=== PATIENT | female | born 1930 | race Caucasian/White ===

== ENCOUNTER 2017-05-02 14:22 | Inpatient (IN) | payer OTHER ==
[~2017-05-02] VITALS: Ht 142.2 cm; Wt 47.4 kg
[~2017-05-02 14:22] MED LIST: ASPIRIN EC325 MG PO; ATENOLOL50 MG PO; DOXYCYCLINE HY100 M4 PO; LOVASTATIN40 MG PO
--- NOTE | 2017-05-02 14:37 | ED MVC/FALL/TRAUMA COMPLAINT ---
See Addendum History of Present Illness General Chief Complaint: Fall Stated Complaint: BIBA S/P FALL Source: patient, family, EMS Exam Limitations: no limitations Vital Signs & Intake/Output Vital Signs & Intake/Output Vital Signs Date Time Temp Pulse Resp B/P B/P Pulse O2 O2 Flow FiO2 Mean Ox Delivery Rate 05/02 1453 95 Nasal 3.0L Cannula 05/02 1435 96.9 82 18 159/76 95 Nasal 3.0L Cannula Allergies Coded Allergies: NO KNOWN ALLERGIES (02/27/14) Reconcile Medications Aspirin E.c. (Ecotrin) 325 MG TAB 1 TAB PO DAILY HEART HEALTH (Reported) Atenolol 50 MG TABLET 1 TAB PO DAILY HEART (Reported) Doxycycline Hyclate 100 MG TABLET 1 TAB PO BID wound Lovastatin 40 MG TABLET 1 TAB PO DAILY CHOLESTEROL (Reported) with food Triage Note: PT TO ER S/P FALL, STATES LOST BALANCE AND FELL. PRESENTS TO ER WITH EXTERNALLY ROTATED, SHORENTED RIGHT HIP. 10/10 RIGHT HIP PAIN. +PEDAL PULSES. RA SAT 78%, ADMITS TO BEING A HEAVY SMOKER, PLACED ON 3 L NC SATS TO 93%. ADMITS TO "LIGHT" HEAD STRIKE. NO LOC. TAKES 81 MG ASA DAILY Triage Nurses Notes Reviewed? yes Onset: Abrupt Duration: day(s):, constant Timing: recent history Severity: moderate, severe Injuries/Fall Location: upper extremity, lower extremity Method of Injury: fall No Modifying Factors: none HPI: 86-year-old female comes in by ambulance after falling at home. Patient reports that she was reaching for something in the kitchen when she twisted and fell on her right hip. She has pain. She has been unable to ambulate. Cut to the left forearm. She denies hitting her head. She is alert and oriented 3. Denies any preceding lightheaded dizziness chest pain shortness of breath prior to fall. Pain is severe. Right hip. Worsening movement. (Tommy Rodriguez) Past History Travel History Traveled to [place] past 21 day No Medical History Any Pertinent Medical History? 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 No (Tommy Rodriguez) Review of Systems Review of Systems Constitutional: Reports: no symptoms. Eyes: Reports: no symptoms. Ears, Nose, Throat, Mouth: Reports: no symptoms. Respiratory: Reports: no symptoms. Cardiovascular: Reports: no symptoms. Gastrointestinal/Abdominal: Reports: no symptoms. Genitourinary: Reports: no symptoms. Musculoskeletal: Reports: see HPI. Skin: Reports: no symptoms. Neurological/Psychological: Reports: no symptoms. All Other Systems: Reviewed and Negative (Tommy Rodriguez) Physical Exam Physical Exam General Appearance: alert, thin Head: atraumatic Eyes: Bilateral: normal appearance. Ears, Nose, Throat, Mouth: hearing grossly normal, moist mucous membrane Neck: normal inspection, full range of motion Respiratory: no respiratory distress Gastrointestinal: soft, non-tender Extremities: right foot sure and on the right side and foot externally rotated, pain with any type of internal rotation or external rotation of hip,, skin avulsion to left forearm Neurologic/Psych: awake, alert, oriented x 3 Core Measures ACS in differential dx? No CVA/TIA Diagnosis No Sepsis Present: No Sepsis Focused Exam Completed? No (Tommy Rodriguez) Progress Differential Diagnosis: abd injury, C/T/L spine injury, ext injury, ICH, pelvis injury, pnemothorax, spinal cord injury Diagnostic Imaging: Viewed by Me: Radiology Read. Discussed w/RAD: Radiology Read. Radiology Impression: PATIENT: ALFONSO SHEPHERD PRESENT AGE: 86 PATIENT ACCOUNT NO: [id number] : [birth year] LOCATION: [facility], [place] ORDERING PHYSICIAN: Tommy MERCEDES SERVICE DATE: 05/02/17 EXAM TYPE: RAD - XRY-CHEST XRAY, SINGLE VIEW; XRY-FOREARM, LEFT; XRY-HIP 2-3 VIEWS, RIGHT EXAMINATION: XR HIP, RIGHT XR FOREARM, LEFT XR CHEST CLINICAL INFORMATION: 86- year-old female status post fall, complaining of right hip, left forearm pain. COMPARISON: Chest x-ray done on 07/02/2014. TECHNIQUE: Two views of the right hip. Two views of the left forearm and single frontal view of the chest. FINDINGS: RIGHT HIP: Mild diffuse osteopenia is noted. Comminuted intertrochanteric fracture is present with minimal superior and posterior displacement of the distal fracture fragment. LEFT FOREARM: The bony alignment is intact. The cortices are intact. Chondrocalcinosis is noted within the included visualized part of the left wrist. Moderate diffuse osteopenia is seen. CHEST: Persistent stable mild blunting of the right lateral CP angle is noted, consistent with chronic pleural effusion, thickening or combination thereof. Mild pulmonary venous congestion is noted bilaterally, unchanged. Linear pleural parenchymal opacities noted at both lung bases (right greater than left) may represent hypoventilatory, atelectatic changes versus infiltrate versus pleural parenchymal scar or a combination thereof. The cardiomediastinal silhouette is mildly enlarged. Compared to prior study, the pulmonary venous congestion and bibasilar airspace disease appear new. IMPRESSION: 1. Moderate diffuse osteopenia involving all the visualized bones. 2. Comminuted minimally displaced intertrochanteric fracture of the right femur. 3. No radiographic evidence of any fracture or dislocation involving the left forearm. 4. Abnormal chest radiograph showing evidence of mild pulmonary venous congestion and nonspecific bibasilar linear pleuroparenchymal disease. Stable blunting of right lateral CP angle is consistent with chronic small pleural thickening or pleural effusion. 5. Mild enlargement of the cardiomediastinal silhouette. DICTATED BY: Hermann Bonds MD DATE/TIME DICTATED:05/02/171601 GLOBAL COORDINATOR:HILARIA DATE/ TIME TRANSCRIBED:05/02/171601 CONFIDENTIAL, DO NOT COPY WITHOUT APPROPRIATE AUTHORIZATION. <Electronically signed in Other Vendor System> SIGNED BY: Hermann Bonds MD 05/02/17 1644 (Tommy Rodriguez) Plan of Care: Orders Procedure Date/time Status Nothing by Mouth 05/03 B Active Cruz, Insertion/Removal/Asses 05/02 1646 Active CULTURE,URINE 05/02 1646 Active Misc Message 05/02 1620 Active ED Holding Orders 05/02 1620 Active Admit to inpatient 05/02 1620 Active Vital Signs 05/02 1620 Active Code Status 05/02 1620 Active TROPONIN LEVEL 05/02 1437 Complete PARTIAL THROMBOPLASTIN TIME 05/02 1437 Complete PROTHROMBIN TIME 05/02 1437 Complete COMPREHENSIVE METABOLIC PANEL 05/02 143 Complete CBC WITHOUT DIFFERENTIAL 05/02 143 Complete EKG 05/02 143 Active TYPE & SCREEN (NOT X-MATCH) 05/02 143 Complete Laboratory Tests 05/02/17 1448: Anion Gap 6, Estimated GFR 47 L, BUN/Creatinine Ratio 22.7, Glucose 164 H, Calcium 8.8, Total Bilirubin 0.3, AST 19, ALT 18, Alkaline Phosphatase 67, Troponin I 0.03, Total Protein 5.7 L, Albumin 3.1 L, Globulin 2.6, Albumin/ Globulin Ratio 1.2, PT 10.5, INR 1.00, APTT < 20 L, CBC w Diff NO MAN DIFF REQ, RBC 4.08 L, MCV 96.8, MCH 31.8 H, MCHC 32.9 L, RDW 14.0, MPV 7.9, Gran % 86.0 H, Lymphocytes % 6.5 L, Monocytes % 5.8, Eosinophils % 1.5, Basophils % 0.2, Absolute Granulocytes 8.9 H, Absolute Lymphocytes 0.7 L, Absolute Monocytes 0.6, Absolute Eosinophils 0.2, Absolute Basophils 0 Microbiology 05/02 1646 URINE ROUT: Urine Culture - ORD (Lauren LEIGH,Jourdan Mackenzie) Departure Departure Disposition: HOME OR SELF CARE Condition: Stable Clinical Impression Primary Impression: Intertrochanteric fracture of right hip Secondary Impressions: Hypoxia Referrals: Lev LEIGH,Darshan Powell (PCP/Family) Departure Forms: Customer Survey General Discharge Information Admission Note Spoke With: Janet Garrido MD Documentation of Exam: Documentation of any treatments & extenuating circumstances including Concerns Regarding Discharge (functional status, medication knowledge or non-compliance, living conditions, etc.) that warrant an admission rather than observation: Patient will require supplemental oxygen. Cardiac clearance. Or so consultation. Surgery right hip. High risk. O2 saturation 79% on room air when patient arrived. IV pain control. Unable to ambulate. (Tommy Rodriguez) PA/GENERAL EDUCATION INSTRUCTOR Co-Sign Statement Statement: ED Attending supervision documentation- [X] I saw and evaluated the patient. I have also reviewed all the pertinent lab results and diagnostic results. I agree with the findings and the plan of care as documented in the PA's/GENERAL EDUCATION INSTRUCTOR's documentation. Patient presents for evaluation of right hip pain status post fall. Physical examination reveals a shortened and externally rotated right lower extremity; the right lower extremity is neurovascular intact distally. , [] I have reviewed the ED Record and agree with the PA's/GENERAL EDUCATION INSTRUCTOR's documentation. [] Additions or exceptions (if any) to the PAs/GENERAL EDUCATION INSTRUCTOR's note and plan are summarized below: [] (Lauren LEIGH,Jourdan Mackenzie)
[2017-05-02 14:58] LABS: ABSOLUTE BASOPHIL COUNT 0 /CUMM (0.0-0.2); ABSOLUTE EOSINOPHIL COUNT 0.2 /CUMM (0.0-0.7); ABSOLUTE GRANULOCYTE CT 8.9 /CUMM (1.4-6.5); ABSOLUTE LYMPH COUNT 0.7 /CUMM (1.2-3.4); ABSOLUTE MONOCYTE COUNT 0.6 /CUMM (0.10-0.60); BASOPHIL % 0.2 % (0.0-2.0); EOSINOPHIL % 1.5 % (0-5); HEMATOCRIT 39.5 % (37-47); MEAN CORPUSCULAR HGB 31.8 PG (27.0-31.0); MEAN CORPUSCULAR HGB CONC 32.9 G/DL (33.0-37.0); MEAN CORPUSCULAR VOLUME 96.8 FL (81.0-99.0); MEAN PLATELET VOLUME 7.9 FL (7.4-10.4); PLATELET COUNT 247 /CUMM (130-400); RED BLOOD CELL CT 4.08 /CUMM (4.20-5.40); WHITE BLOOD CELL COUNT 10.3 /CUMM (4.8-10.8)
[2017-05-02 15:08] LABS: PT 10.5 SEC (9.4-12.5); PTT < 20 SEC (25-37)
--- NOTE | 2017-05-02 16:44 | RADIOLOGY REPORT ---
EXAMINATION: XR HIP, RIGHT XR FOREARM, LEFT XR CHEST CLINICAL INFORMATION: 86-year-old female status post fall, complaining of right hip, left forearm pain. COMPARISON: Chest x-ray done on 07/02/2014. TECHNIQUE: Two views of the right hip. Two views of the left forearm and single frontal view of the chest. FINDINGS: RIGHT HIP: Mild diffuse osteopenia is noted. Comminuted intertrochanteric fracture is present with minimal superior and posterior displacement of the distal fracture fragment. LEFT FOREARM: The bony alignment is intact. The cortices are intact. Chondrocalcinosis is noted within the included visualized part of the left wrist. Moderate diffuse osteopenia is seen. CHEST: Persistent stable mild blunting of the right lateral CP angle is noted, consistent with chronic pleural effusion, thickening or combination thereof. Mild pulmonary venous congestion is noted bilaterally, unchanged. Linear pleural parenchymal opacities noted at both lung bases (right greater than left) may represent hypoventilatory, atelectatic changes versus infiltrate versus pleural parenchymal scar or a combination thereof. The cardiomediastinal silhouette is mildly enlarged. Compared to prior study, the pulmonary venous congestion and bibasilar airspace disease appear new. IMPRESSION: 1. Moderate diffuse osteopenia involving all the visualized bones. 2. Comminuted minimally displaced intertrochanteric fracture of the right femur. 3. No radiographic evidence of any fracture or dislocation involving the left forearm. 4. Abnormal chest radiograph showing evidence of mild pulmonary venous congestion and nonspecific bibasilar linear pleuroparenchymal disease. Stable blunting of right lateral CP angle is consistent with chronic small pleural thickening or pleural effusion. 5. Mild enlargement of the cardiomediastinal silhouette.
--- NOTE | 2017-05-02 16:52 | Cons- Orthopedic ---
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 Surgical History Pertinent Surgical History: non-contributory Psychosocial History Services at Home: NONE Exam & Diagnostic Data Vital Signs and I&O Vital Signs Date Time Temp Pulse Resp B/P B/P Pulse O2 O2 Flow FiO2 Mean Ox Delivery Rate 05/02 1453 95 Nasal 3.0L Cannula 05/02 1435 96.9 82 18 159/76 95 Nasal 3.0L Cannula Intake & Output 05/02 1600 05/02 0800 05/02 0000 05/01 1600 05/01 0800 05/01 0000 Intake Total Output Total Balance Patient 96 lb 15.98 oz Weight Weight Estimated Measurement Method Assessment/Plan Assessment/Plan Plan place [facility] in ER admit to medical service npo after midnight to OR Monday for ORIF right hip fracture if cleared by medicine Problem List: 1. Intertrochanteric fracture of right hip Copies To: Cameron LEIGH,Tyler Consult Acknowledgment - Thank you for your consult request. Christiane Hinds 05/02/17 1703: General Information and HPI Consulting Request Source of Information: patient, family Exam Limitations: no limitations History of Present Illness: Ms. Kennedy is a 6-year-old female with a past medical history of hypertension, hypercholesterolemia, pack-a-day smoker, was at home in the kitchen when she suddenly turn and lost her footing and fell to the ground. She denies chest pain blurred vision dizziness headache or palpitations prior to fall. She was unable to ambulate after the fall and was brought into the emergency room via ambulance. X-rays taken of the right hip demonstrate an intertrochanteric right hip fracture with shortening. She stated that she may have hit her head but has no headache now and no signs of head trauma. She has no other complaints at this time. Allergies/Medications Home Med List: Aspirin E.c. (Ecotrin) 325 MG TAB 1 TAB PO DAILY HEART HEALTH (Reported) Atenolol 50 MG TABLET 1 TAB PO DAILY HEART (Reported) Doxycycline Hyclate 100 MG TABLET 1 TAB PO BID wound Lovastatin 40 MG TABLET 1 TAB PO DAILY CHOLESTEROL (Reported) with food Exam & Diagnostic Data Vital Signs and I&O Vital Signs Date Time Temp Pulse Resp B/P B/P Pulse O2 O2 Flow FiO2 Mean Ox Delivery Rate 05/02 1453 95 Nasal 3.0L Cannula 05/02 1435 96.9 82 18 159/76 95 Nasal 3.0L Cannula Intake & Output 05/02 1600 05/02 0800 05/02 0000 05/01 1600 05/01 0800 05/01 0000 Intake Total Output Total Balance Patient 43.998 kg Weight Weight Estimated Measurement Method Physical Exam General Appearance: alert, awake, anxious Head: normal appearance Eyes: Bilateral: PERRL. Neck: no midline tenderness Respiratory: normal breath sounds, wheezing Cardiovascular: regular rate/rhythm Gastrointestinal: normal bowel sounds, soft, non-tender Extremities: right lower extremity is shortened and externally rotated, distal motor and sensory are intact bilaterally, bilateral lower extremity peripheral vascular changes consistent with venous stasis disease, Last 24 Hours of Labs: Laboratory Tests 05/02 1448 Chemistry Sodium (137 - 145 mmol/L) 147 H Potassium (3.5 - 5.1 mmol/L) 5.3 H Chloride (98 - 107 mmol/L) 104 Carbon Dioxide (22 - 30 mmol/L) 37 H Anion Gap (5 - 16) 6 BUN (7 - 17 mg/dL) 25 H Creatinine (0.5 - 1.0 mg/dL) 1.1 H Estimated GFR (>60 ml/min) 47 L BUN/Creatinine Ratio (7 - 25 %) 22.7 Glucose (65 - 99 mg/dL) 164 H Calcium (8.4 - 10.2 mg/dL) 8.8 Total Bilirubin (0.2 - 1.3 mg/dL) 0.3 AST (14 - 36 U/L) 19 ALT (9 - 52 U/L) 18 Alkaline Phosphatase (<127 U/L) 67 Troponin I (< 0.11 ng/ml) 0.03 Total Protein (6.3 - 8.2 g/dL) 5.7 L Albumin (3.5 - 5.0 g/dL) 3.1 L Globulin (1.9 - 4.2 gm/dL) 2.6 Albumin/Globulin Ratio (1.1 - 2.2 %) 1.2 Coagulation PT (9.4 - 12.5 SEC) 10.5 INR (0.90 - 1.19) 1.00 APTT (25 - 37 SEC) < 20 L Hematology CBC w Diff NO MAN DIFF REQ WBC (4.8 - 10.8 /CUMM) 10.3 RBC (4.20 - 5.40 /CUMM) 4.08 L Hgb (12.0 - 16.0 G/DL) 13.0 Hct (37 - 47 %) 39.5 MCV (81.0 - 99.0 FL) 96.8 MCH (27.0 - 31.0 PG) 31.8 H MCHC (33.0 - 37.0 G/DL) 32.9 L RDW (11.5 - 14.5 %) 14.0 Plt Count (130 - 400 /CUMM) 247 MPV (7.4 - 10.4 FL) 7.9 Gran % (42.2 - 75.2 %) 86.0 H Lymphocytes % (20.5 - 51.1 %) 6.5 L Monocytes % (1.7 - 9.3 %) 5.8 Eosinophils % (0 - 5 %) 1.5 Basophils % (0.0 - 2.0 %) 0.2 Absolute Granulocytes (1.4 - 6.5 /CUMM) 8.9 H Absolute Lymphocytes (1.2 - 3.4 /CUMM) 0.7 L Absolute Monocytes (0.10 - 0.60 /CUMM) 0.6 Absolute Eosinophils (0.0 - 0.7 /CUMM) 0.2 Absolute Basophils (0.0 - 0.2 /CUMM) 0 Imaging Results: SERVICE DATE: 05/02/17 EXAM TYPE: RAD - XRY-CHEST XRAY, SINGLE VIEW; XRY-FOREARM, LEFT; XRY-HIP 2-3 VIEWS, RIGHT EXAMINATION: XR HIP, RIGHT XR FOREARM, LEFT XR CHEST CLINICAL INFORMATION: 86-year-old female status post fall, complaining of right hip, left forearm pain. COMPARISON: Chest x-ray done on 07/02/2014. TECHNIQUE: Two views of the right hip. Two views of the left forearm and single frontal view of the chest. FINDINGS: RIGHT HIP: Mild diffuse osteopenia is noted. Comminuted intertrochanteric fracture is present with minimal superior and posterior displacement of the distal fracture fragment. LEFT FOREARM: The bony alignment is intact. The cortices are intact. Chondrocalcinosis is noted within the included visualized part of the left wrist. Moderate diffuse osteopenia is seen. CHEST: Persistent stable mild blunting of the right lateral CP angle is noted, consistent with chronic pleural effusion, thickening or combination thereof. Mild pulmonary venous congestion is noted bilaterally, unchanged. Linear pleural parenchymal opacities noted at both lung bases (right greater than left) may represent hypoventilatory, atelectatic changes versus infiltrate versus pleural parenchymal scar or a combination thereof. The cardiomediastinal silhouette is mildly enlarged. Compared to prior study, the pulmonary venous congestion and bibasilar airspace disease appear new. IMPRESSION: 1. Moderate diffuse osteopenia involving all the visualized bones. 2. Comminuted minimally displaced intertrochanteric fracture of the right femur. 3. No radiographic evidence of any fracture or dislocation involving the left forearm. 4. Abnormal chest radiograph showing evidence of mild pulmonary venous congestion and nonspecific bibasilar linear pleuroparenchymal disease. Stable blunting of right lateral CP angle is consistent with chronic small pleural thickening or pleural effusion. 5. Mild enlargement of the cardiomediastinal silhouette. DICTATED BY: Hermann Bonds MD DATE/TIME DICTATED:05/02/171601 OUTSIDE MACHINIST APPRENTICE:HILARIA DATE/TIME TRANSCRIBED:05/02/171601 Assessment/Plan Assessment/Plan Ms. Kennedy is an 86-year-old female who sustained a mechanical fall resulting in a right intratrochanteric hip fracture. For ambulation this will require open reduction internal fixation. This case was discussed wit Dr Barnes would like to operate on this patient as soon as medically able. He recommends that the patient be kept nothing by mouth after midnight tonight to be done tomorrow afternoon. Problem List: 1. Intertrochanteric fracture of right hip Consult Acknowledgment - Thank you for your consult request.
[2017-05-02] MEDS ORDERED: LOVASTATIN40 M1 PO (20:59)
[2017-05-02] MEDS ORDERED: ATENOLOL50 M1 PO (20:59)
--- NOTE | 2017-05-02 20:59 | History & Physical ---
Sohail Laboy MD 05/02/172058: General Information and HPI Source of Information: patient, family Exam Limitations: no limitations History of Present Illness: Patient is an 86-year-old female with long-standing history of smoking, COPD not on home oxygen, hypertension, hyperlipidemia presenting this admission with chief complaint of fall and hip pain. Patient lives by herself. Patient son and [id number] were at bedside today. Patient had recently received morphine and was confused and agitated. History was obtained from her family who stated that this afternoon patient was in her kitchen and had turned abruptly and hit her right side and fallen on her right hip. Per patient's family there was no report of any chest pain, shortness of breath, palpitations, lightheadedness or dizziness prior to the fall. Family denies any head trauma or loss of consciousness however they state that patient lives by herself and had called the neighbor who had notified the ambulance. Patient herself is normally independent and has reportedly unsteady gait however does not use a walker or cane regularly. Patient has a history of recurrent falls. Family reports that patient last fell in February however at that time did not require hospitalization or an ED visit. Per patient's family there has been no recent change in her health. States that patient is a half a pack to pack a day smoker. In the ED patient was found to have an intertrochanteric fracture seen by orthopedics. Patient received morphine for pain however became acutely agitated and required Haldol. 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 Exam & Diagnostic Data Last 24 Hrs of Vital Signs/I&O Vital Signs Date Time Temp Pulse Resp B/P B/P Pulse O2 O2 Flow FiO2 Mean Ox Delivery Rate 05/03 0627 74 99 05/03 0416 75 30 111/68 05/03 0256 87 98 05/03 0129 120/60 05/03 0128 97 Non 100% ReBreather 05/03 0116 100/50 05/03 0105 82/54 05/03 0047 102/62 05/03 0036 128/62 05/03 0031 138/62 05/03 0022 118/58 05/02 2355 82/48 05/02 2335 68/40 05/02 2329 93 70/40 83 Non 100% ReBreather 05/02 2317 62/42 05/02 2308 68/40 05/02 2303 70/42 05/02 2257 96 72/48 88 Non 100% ReBreather 05/02 2251 99.0 97 26 70/40 05/02 2248 97 26 70/40 84 Non 100% ReBreather 05/02 2208 83 Venti Mask 50% 05/02 2154 99.0 107 26 87/51 64 Nasal 4.0L Cannula 05/02 1915 96.4 05/02 1800 91 Nasal 3.0L Cannula 05/02 1730 96.4 72 17 148/78 96 Room Air 05/02 1453 95 Nasal 3.0L Cannula 05/02 1435 96.9 82 18 159/76 95 Nasal 3.0L Cannula Intake & Output 05/03 0800 05/03 0000 05/02 1600 Intake Total Output Total Balance Patient 96 lb 15.98 oz Weight Weight Estimated Measurement Method Physical Exam General Appearance Alert, Mild Distress, patient is confused and combative Skin dry fragile skin, left arm in bandage - superficial skin tear Skin Temp/Moisture Exam: Warm/Dry HEENT dry mucosal membranes Cardiovascular Regular Rate, Normal S1, Normal S2 Lungs rhonchi and coarse breath sounds bilaterally Abdomen Normal Bowel Sounds, Soft, No Tenderness Neurological unable to assess due to patient's mental condition, however is able to move all extremities actively Extremities Normal Pulses, tenderness at right hip Vascular Normal Pulses, Pulses Symmetrical Last 24 Hrs of Labs/James: 05/02/172116: Anion Gap 5, Estimated GFR 39 L, BUN/Creatinine Ratio 23.1, Phosphorus 5.0 H, Magnesium 1.9, Creatine Kinase 157 H, Troponin I 0.09, CBC w Diff NO MAN DIFF REQ, RBC 3.13 L, MCV 98.3, MCH 33.0 H, MCHC 33.5, RDW 13.9, MPV 8.7, Gran % 92.6 H, Lymphocytes % 1.7 L, Monocytes % 5.7, Eosinophils % 0, Basophils % 0, Absolute Granulocytes 15.2 H, Absolute Lymphocytes 0.3 L, Absolute Monocytes 0.9 H, Absolute Eosinophils 0, Absolute Basophils 0 05/02/17 1448: Anion Gap 6, Estimated GFR 47 L, BUN/Creatinine Ratio 22.7, Glucose 164 H, Calcium 8.8, Total Bilirubin 0.3, AST 19, ALT 18, Alkaline Phosphatase 67, Troponin I 0.03, Total Protein 5.7 L, Albumin 3.1 L, Globulin 2.6, Albumin/ Globulin Ratio 1.2, PT 10.5, INR 1.00, APTT < 20 L, CBC w Diff NO MAN DIFF REQ, RBC 4.08 L, MCV 96.8, MCH 31.8 H, MCHC 32.9 L, RDW 14.0, MPV 7.9, Gran % 86.0 H, Lymphocytes % 6.5 L, Monocytes % 5.8, Eosinophils % 1.5, Basophils % 0.2, Absolute Granulocytes 8.9 H, Absolute Lymphocytes 0.7 L, Absolute Monocytes 0.6, Absolute Eosinophils 0.2, Absolute Basophils 0 Microbiology 05/02 2321 BLOOD: Blood Culture - COLB 05/02 1919 URINE ROUT: Urine Culture - RECD Assessment/Plan Assessment: Patient is on 86-year-old female with long-standing history of smoking, COPD not on home oxygen, hypertension, hyperlipidemia presenting this admission with chief complaint of fall and hip pain. On admission: Patient will be admitted to the telemetry floor for management of: 1. Intertrochanteric right femur fracture status post fall. Fall is likely a mechanical in nature however will rule out neurocardiac etiologies. Reportedly patient had no presyncopal episodes. -Orth onboard. Patient is n.p.o. for surgery tomorrow -Monitor on telemetry -Serial troponins and EKG -Pulmonology consult in the a.m. for clearance prior to her surgery -Avoid narcotics -IV Tylenol for pain -IV fluids for dehydration 2. Acute hypoxic respiratory failure Patient presented with acute desat and oxygen into the 80s requiring. Chest x- ray showed pulmonary congestion. At this time patient appears dehydrated. Patient has a long standing history of COPD not on home oxygen. - continue oxygen supplementation as needed - pulmonology consult prior to surgery As Ranked By This Provider Problem List: 1. Intertrochanteric fracture of right hip 2. Hypoxia 3. Abrasion of skin Core Measures/Misc (12/04) Acute Coronary Syndrome ACS Diagnosis: No Congestive Heart Failure Congestive Heart Failure Diagnosis No Cerebrovascular Accident CVA/TIA Diagnosis: No VTE (View Protocol) VTE Risk Factors Age>40 No Mechanical VTE Prophylaxis d/t N/A MechProphylax Ordered No VTE Pharm Prophylaxis d/t NA PharmProphylax ordered Sepsis (View protocol) Sepsis Present: No Ed Velazquez 05/02/174: General Information and HPI Allergies/Medications Home Med list Alendronate Sodium 70 MG TABLET 1 TAB PO QW BONE (Reported) in the morning, at least 30 minutes before the first food, beverage, or medication of the day Aspirin E.c. (Ecotrin) 325 MG TAB 1 TAB PO DAILY HEART HEALTH (Reported) Atenolol 50 MG TABLET 1 TAB PO DAILY HEART (Reported) Atenolol 50 MG TABLET 1 TAB PO DAILY HEART (Reported) Doxycycline Hyclate 100 MG TABLET 1 TAB PO BID wound Lisinopril/Hydrochlorothiazide (Lisinopril-Hctz 20-12.5 MG Tab) 20 MG-12.5 MG TABLET 1 TAB PO DAILY HTN (Reported) Lovastatin 40 MG TABLET 1 TAB PO DAILY CHOLESTEROL (Reported) with food Lovastatin 40 MG TABLET 1 TAB PO DAILY CHOLESTROL (Reported) with food Resident Review Statement Resident Statement: examined this patient, discussed with creative intern, agreed with creative intern, discussed with family, reviewed EMR data (avail), reviewed images, amended to note Other Findings: Mr. Kennedy is a 86-year-old woman with history of long-standing smoking, COPD, hypertension, hyperlipidemia who sustained a mechanical fall this morning resulting in a comminuted minimally displaced intertrochanteric fracture of the right femur. This will require ORIF. Patient to remain nothing by mouth for the possible procedure. Patient needs clearance by pulmonary service for long-standing smoking and COPD for surgery. Type and crossmatch. Check labs in a.m. No opiates or benzodiazepines. Pain control with IV Tylenol [id number]. Patient is extremely dehydrated upon exam, evidence of no signs of heart failure - chest exam is limited and notable for transmitted sounds secondary to retained tracheal secretions, start D5 half-normal saline for rehydration. Follow sodium in a.m. As per revised cardiac risk index, Ms. Kennedy is a class I risk going for intermediate risk surgery, and carries a 0.4% risk for major cardiac events. Full code for now-daughter will bring an official paperwork in the morning. Keep nothing by mouth. Hold pharmacological anticoagulation in anticipation of surgery in am. Janet Garrido MD 05/02/172118: Attending MD Review Statement Attending Statement Attending MD Statement: examined this patient, discuss w/resident/PA/COKE PRODUCTION HEATER, agreed w/resident/PA/COKE PRODUCTION HEATER, reviewed EMR data (avail) Attending Assessment/Plan: 86F PMH HTN, dementia, reported COPD (heavy smoker, though not on any inhalers) presenting with mechanical fall and right hip pain. Was reaching for something, lost her balance,and landed on her right hip, with x-ray showing right intertrochanteric fracture. Patient was calm initially, but became agitated in the ED following Morphine IV, and given Haldol for agitation. History is primarily from family. Patient is a heavy smoker and was found to be hypoxic to 85% on room air in ED, required 3L NC to achieve 93%. She is typically active and has no cardiac history. Labs show dehydration, CXR shows pulmonary vascular congestion. Patient appears dehydrated by exam, exam otherwise normal. 1. Fall, initial 2. Right closed displaced intertrochanteric hip fracture 3. Toxic encephalopathy 4. Acute hypoxemic respiratory failure Plan - Admit to telemetry - Give gentle IV hydration - Soft restraints and reorientation for encephalopathy - Would avoid Morphine as it provoked delirium - Tylenol for pain - Monitor renal function and sodium - Cardiology consult for vascular congestion and pre-operative evaluation - Obtain echocardiogram - Pulmonary consult for pre-operative evaluation given heavy smoking and hypoxia - Continue home medications - DVT PPx
[2017-05-02] MEDS ORDERED: ALENDRONATE SOD70 M2 PO (21:00)
[2017-05-02] MEDS ORDERED: LISINOPRIL-HCT1 EACH PO (21:00)
--- NOTE | 2017-05-02 21:24 | Admission Certification ---
Admission Certification Certification Statement - As attending physician, I certify that at the time of - admission, based on clinical presentation, severity of - symptoms, need for further diagnostic testing and - therapeutic interventions, and risk of adverse outcomes - without in-hospital treatment, in my clinical assessment, - this patient requires an acute hospital stay for a minimum - of two nights or longer. I have also considered psychsocial - factors such as support system, advanced age, financial - issues, cognitive issues, and failed out-patient treatments, - past re-admission history, safety of patient, and lack of - compliance as applicable. Specific rationale supporting this admission is: Fall with hip fracture and hypoxia
--- NOTE | 2017-05-02 22:43 | RADIOLOGY REPORT ---
EXAMINATION: CHEST 1 VIEW CLINICAL INFORMATION: Rhonchi. Increased supplemental oxygen requirement. COMPARISON: 05/02/2017 at 1532 hours. TECHNIQUE: An AP view of the chest was obtained at 2223 hours. FINDINGS: The cardiac silhouette is stable. The mediastinal and hilar contours are unremarkable. Or no pneumothoraces. There is stable blunting of the right lateral costophrenic angle. There is stable mild streaky bibasilar opacification. The osseous structures are unremarkable. IMPRESSION: Stable chest radiograph with blunting of the right lateral costophrenic angle and mild bibasilar atelectasis.
[2017-05-02 23:06] LABS: ABSOLUTE BASOPHIL COUNT 0 /CUMM (0.0-0.2); ABSOLUTE EOSINOPHIL COUNT 0 /CUMM (0.0-0.7); ABSOLUTE LYMPH COUNT 0.3 /CUMM (1.2-3.4); BASOPHIL % 0 % (0.0-2.0); EOSINOPHIL % 0 % (0-5)
--- NOTE | 2017-05-02 23:08 | Cons- Medical ---
General Information and HPI Consulting Request Date of Consult: 05/02/17 Requested By: Janet Garrido MD Reason for Consult: - Sepsis Allergies/Medications Allergies: Coded Allergies: NO KNOWN ALLERGIES (02/27/14) Home Med List: Alendronate Sodium 70 MG TABLET 1 TAB PO QW BONE (Reported) in the morning, at least 30 minutes before the first food, beverage, or medication of the day Aspirin E.c. (Ecotrin) 325 MG TAB 1 TAB PO DAILY HEART HEALTH (Reported) Atenolol 50 MG TABLET 1 TAB PO DAILY HEART (Reported) Atenolol 50 MG TABLET 1 TAB PO DAILY HEART (Reported) Doxycycline Hyclate 100 MG TABLET 1 TAB PO BID wound Lisinopril/Hydrochlorothiazide (Lisinopril-Hctz 20-12.5 MG Tab) 20 MG-12.5 MG TABLET 1 TAB PO DAILY HTN (Reported) Lovastatin 40 MG TABLET 1 TAB PO DAILY CHOLESTEROL (Reported) with food Lovastatin 40 MG TABLET 1 TAB PO DAILY CHOLESTROL (Reported) with food Past History Travel History Traveled to [place] past 21 day No Medical History Neurological: NONE EENT: NONE Cardiovascular: hypertension, hyperlipidemia Respiratory: NONE Gastrointestinal: NONE Hepatic: NONE Renal: NONE Musculoskeletal: NONE Psychiatric: NONE Endocrine: NONE Blood Disorders: NONE Cancer(s): NONE CALL OR CONTACT CENTRE COACH/Reproductive: NONE Surgical History Surgical History: non-contributory Psychosocial History Services at Home: NONE Assessment/Plan Consult Acknowledgment - Thank you for your consult request.
[2017-05-02 23:12] LABS: ABSOLUTE GRANULOCYTE CT 15.2 /CUMM (1.4-6.5); ABSOLUTE MONOCYTE COUNT 0.9 /CUMM (0.10-0.60); MEAN CORPUSCULAR HGB CONC 33.5 G/DL (33.0-37.0); MEAN CORPUSCULAR VOLUME 98.3 FL (81.0-99.0); MEAN PLATELET VOLUME 8.7 FL (7.4-10.4); PLATELET COUNT 232 /CUMM (130-400); RBC DISTRIBUTION WIDTH 13.9 % (11.5-14.5); RED BLOOD CELL CT 3.13 /CUMM (4.20-5.40)
[2017-05-02 23:13] LABS: HEMATOCRIT 30.8 % (37-47); WHITE BLOOD CELL COUNT 16.4 /CUMM (4.8-10.8)
[2017-05-02 23:31] LABS: GRANULOCYTE % 92.6 % (42.2-75.2)
--- NOTE | 2017-05-03 00:04 | CT SCAN REPORT ---
EXAMINATION: CT HEAD WITHOUT CONTRAST CLINICAL INFORMATION: Altered mental status, decreased responsiveness COMPARISON: 07/22/2015 TECHNIQUE: Contiguous axial imaging was performed from the skull base to vertex without intravenous administration of contrast. DLP: 610.03 mGy-cm FINDINGS: There is no evidence of acute intracranial hemorrhage or territorial infarction. No abnormal mass effect or midline shift is seen. Briones to white matter differentiation is well preserved. No extra-axial fluid collections are identified. The ventricles are normal in size. There is mild periventricular white matter hypoattenuation consistent with chronic small vessel ischemic disease. Mild volume loss is noted. The osseous structures and soft tissues are normal. The mastoid air cells and visualized portions of the paranasal sinuses are well aerated. IMPRESSION: No acute intracranial pathology. Chronic small vessel ischemic disease and volume loss.
--- NOTE | 2017-05-03 00:29 | Cons- General Surgery ---
Yael Lackey 05/03/17 0009: General Information and HPI Consulting Request Date of Consult: 05/03/17 Requested By: Janet Garrido MD Reason for Consult: ?GI BLEED Source of Information: old records Exam Limitations: PT UNRESPONSIVE History of Present Illness: PT FELL EARLIER TODAY FROM STANDING AND WAS BROUGHT TO ED AND WAS FOUND TO HAVE A INTERTROCH HIP FRACTURE. sHE WAS GIVEN MORPHINE FOR PAIN AND THEN BECAME VERY AGGITATED AND WAS THEN GIVEN HALDOL. SHE THEN SLEPT FOR A FEW HOURS AND WAS FOUND TO BE HYPOXIC, HYPOTENSIVE, UNRESPONSIVE AND HER CRIT WAS DROPPING. PRESSORS WERE STARTED, A CENTRAL LINE WAS PLACED. THE ER PROVIDER NOTED THAT HER ABDOMEN APPEARED DISTENDED AND A CT OF THE ABDOMEN WAS ORDERED. AFTER RETURNING FROM CT, NARCAN WAS GIVEN AND HER PRESSURE STARTED TO COME UP TO 120's-130's. Allergies/Medications Allergies: Coded Allergies: NO KNOWN ALLERGIES (02/27/14) Home Med List: Alendronate Sodium 70 MG TABLET 1 TAB PO QW BONE (Reported) in the morning, at least 30 minutes before the first food, beverage, or medication of the day Aspirin E.c. (Ecotrin) 325 MG TAB 1 TAB PO DAILY HEART HEALTH (Reported) Atenolol 50 MG TABLET 1 TAB PO DAILY HEART (Reported) Atenolol 50 MG TABLET 1 TAB PO DAILY HEART (Reported) Doxycycline Hyclate 100 MG TABLET 1 TAB PO BID wound Lisinopril/Hydrochlorothiazide (Lisinopril-Hctz 20-12.5 MG Tab) 20 MG-12.5 MG TABLET 1 TAB PO DAILY HTN (Reported) Lovastatin 40 MG TABLET 1 TAB PO DAILY CHOLESTEROL (Reported) with food Lovastatin 40 MG TABLET 1 TAB PO DAILY CHOLESTROL (Reported) with food Past History Medical History Neurological: NONE EENT: NONE Cardiovascular: hypertension, hyperlipidemia Respiratory: NONE Gastrointestinal: NONE Hepatic: NONE Renal: NONE Musculoskeletal: NONE Psychiatric: NONE Endocrine: NONE Blood Disorders: NONE Cancer(s): NONE 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 Surgical History Pertinent Surgical History: non-contributory Psychosocial History Services at Home: NONE Review of Systems Review of Systems: PER HPI PT IS UNRESPONSIVE Exam & Diagnostic Data Vital Signs and I&O Vital Signs Date Time Temp Pulse Resp B/P B/P Pulse O2 O2 Flow FiO2 Mean Ox Delivery Rate 05/02 2355 82/48 05/02 2335 6805/02 2329 93 70/40 83 Non 100% ReBreather 05/02 2317 62/42 05/02 2308 68/40 05/02 2303 70/42 05/02 2257 96 72/48 88 Non 100% ReBreather 05/02 2251 99.0 97 26 70/40 05/02 2248 97 26 70/40 84 Non 100% ReBreather 05/02 2208 83 Venti Mask 50% 05/02 2154 99.0 107 26 87/51 64 Nasal 4.0L Cannula 05/02 1915 96.4 05/02 1800 91 Nasal 3.0L Cannula 05/02 1730 96.4 72 17 148/78 96 Room Air 05/02 1453 95 Nasal 3.0L Cannula 05/02 1435 96.9 82 18 159/76 95 Nasal 3.0L Cannula Intake & Output 05/03 0800 05/03 0000 05/02 1600 05/02 0800 05/02 0000 05/01 1600 Intake Total Output Total Balance Patient 96 lb 15.98 oz Weight Weight Estimated Measurement Method Physical Exam General Appearance: thin, ELDERY Head: atraumatic, normal appearance Neck: supple, trachea mid line Respiratory: normal breath sounds (CURSE BREATH SOUNDS BILAT), DECREASED BREATH SOUNDS ON THE RIGHT Cardiovascular: regular rate/rhythm Gastrointestinal: soft, non-tender, NO GAURDING Extremities: RIGHT THIGH WITHOUT ECCHYMOSIS, RIGHT THIGH MORE FIRM THAN THE LEFT. RIGHT LEG SHORTENED AND EXTERNALLY ROTATED Skin: VENOUS STASIS CHANGES ON LOWER LEGS BILATERALLY Last 24 Hours of Labs: Laboratory Tests 05/02 05/02 2117 1448 Chemistry Sodium (137 - 145 mmol/L) 140 147 H Potassium (3.5 - 5.1 mmol/L) 6.0 *H 5.3 H Chloride (98 - 107 mmol/L) 103 104 Carbon Dioxide (22 - 30 mmol/L) 31 H 37 H Anion Gap (5 - 16) 5 6 BUN (7 - 17 mg/dL) 30 H 25 H Creatinine (0.5 - 1.0 mg/dL) 1.3 H 1.1 H Estimated GFR (>60 ml/min) 39 L 47 L BUN/Creatinine Ratio (7 - 25 %) 23.1 22.7 Glucose (65 - 99 mg/dL) 164 H Calcium (8.4 - 10.2 mg/dL) 8.8 Phosphorus (2.5 - 4.5 mg/dL) 5.0 H Magnesium (1.6 - 2.3 mg/dL) 1.9 Total Bilirubin (0.2 - 1.3 mg/dL) 0.3 AST (14 - 36 U/L) 19 ALT (9 - 52 U/L) 18 Alkaline Phosphatase (<127 U/L) 67 Creatine Kinase (30 - 135 U/L) 157 H Troponin I (< 0.11 ng/ml) 0.09 0.03 Total Protein (6.3 - 8.2 g/dL) 5.7 L Albumin (3.5 - 5.0 g/dL) 3.1 L Globulin (1.9 - 4.2 gm/dL) 2.6 Albumin/Globulin Ratio (1.1 - 2.2 %) 1.2 Coagulation PT (9.4 - 12.5 SEC) 10.5 INR (0.90 - 1.19) 1.00 APTT (25 - 37 SEC) < 20 L Hematology CBC w Diff NO MAN DIFF REQ NO MAN DIFF REQ WBC (4.8 - 10.8 /CUMM) 16.4 H 10.3 RBC (4.20 - 5.40 /CUMM) 3.13 L 4.08 L Hgb (12.0 - 16.0 G/DL) 10.3 L 13.0 Hct (37 - 47 %) 30.8 L 39.5 MCV (81.0 - 99.0 FL) 98.3 96.8 MCH (27.0 - 31.0 PG) 33.0 H 31.8 H MCHC (33.0 - 37.0 G/DL) 33.5 32.9 L RDW (11.5 - 14.5 %) 13.9 14.0 Plt Count (130 - 400 /CUMM) 232 247 MPV (7.4 - 10.4 FL) 8.7 7.9 Gran % (42.2 - 75.2 %) 92.6 H 86.0 H Lymphocytes % (20.5 - 51.1 %) 1.7 L 6.5 L Monocytes % (1.7 - 9.3 %) 5.7 5.8 Eosinophils % (0 - 5 %) 0 1.5 Basophils % (0.0 - 2.0 %) 0 0.2 Absolute Granulocytes (1.4 - 6.5 /CUMM) 15.2 H 8.9 H Absolute Lymphocytes (1.2 - 3.4 /CUMM) 0.3 L 0.7 L Absolute Monocytes (0.10 - 0.60 /CUMM) 0.9 H 0.6 Absolute Eosinophils (0.0 - 0.7 /CUMM) 0 0.2 Absolute Basophils (0.0 - 0.2 /CUMM) 0 0 Imaging Results: CTA OF CHEST, ABD, PELVIS: IMPRESSION: 1. No pulmonary embolus identified, though assessment of some vessels is limited due to respiratory motion artifact. 2. Intraluminal material within airways of the bilateral lungs, right more extensive than left as described above. Appearance is suggestive of aspiration. 3. Small bilateral pleural effusions with adjacent atelectasis. 4. Upper lobe predominant emphysema. Redemonstrated complex appearing cystic structure in the right upper lobe appears mildly increased in size from 07/05/2011 with increased central components. An additional focal right upper lobe nodule measuring 1.0 x 0.6 cm is new from 2011. Follow-up chest CT in 3 months is advised for reevaluation. 5. Redemonstrated intertrochanteric fracture of the proximal right femur with moderate surrounding hematoma. 6. Moderate distention of the colon with gas and stool, without specific evidence for obstruction. No free air identified. 7. 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 8. Several bilateral renal lesions, left greater than right, not all of which are cystic by CT criteria. These would be best further assessed with pre and postcontrast MRI to evaluate for potential solid mass. 9. Left thyroid nodule, which would be better evaluated with ultrasound. HEAD CT: No acute intracranial pathology. Chronic small vessel ischemic disease and volume loss. X-RAY OF PELVIS, FOREARM AND CHEST: 1. Moderate diffuse osteopenia involving all the visualized bones. 2. Comminuted minimally displaced intertrochanteric fracture of the right femur. 3. No radiographic evidence of any fracture or dislocation involving the left forearm. 4. Abnormal chest radiograph showing evidence of mild pulmonary venous congestion and nonspecific bibasilar linear pleuroparenchymal disease. Stable blunting of right lateral CP angle is consistent with chronic small pleural thickening or pleural effusion. 5. Mild enlargement of the cardiomediastinal silhouette. Assessment/Plan Assessment/Plan THIS IS AN 86YO F SP FALL WITH RIGHT HIP FRACTURE, FOUND TO BE UNRESPONSIVE, HYPOXIC AND HYPOTENSIVE IN ED AFTER RECEIVING PAIN MEDICATION. POSSIBLE ASPIRATION PER CT CHEST READ, PT WILL BE ADMITTED TO MEDICINE AND GO TO ICU FOR MEDICAL MANAGEMENT NO NEED FOR GENERAL SURGICAL INTERVENTION AT THIS TIME REC IVF AND PRESSORS TO MAINTAIN BP NEEDED TRY TO LIMIT NARCOTICS TRANSUFION IF NEEDED FOR ACUTE BLOOD LOSS ANEMIA NPO IF STABLE OVERIGHT AND CLEARED BY MEDICINE WILL PLAN FOR OR TOMORROW FOR R HIP ORIF WILL DISCUSS WITH DR ACEVEDO Copies To: Chong Acevedo DO Consult Acknowledgment - Thank you for your consult request. Chong Acevedo DO 05/03/17 1201: Assessment/Plan Consult Acknowledgment - Thank you for your consult request. Attending MD Review Statement Attending Statement Attending MD Statement: examined this patient, discuss w/resident/PA/MEDICAL AIDE, agreed w/resident/PA/MEDICAL AIDE, reviewed EMR data (avail), reviewed images Attending Assessment/Plan: Patient seen and examined, agree with above. S/P fall from standing, hip fx, became tachycardic/hypotensive/hypoxic. Asked to eval for intra-abdominal source of bleed. CT scan no evidence of bleding. Unlikley to be a abdominal source, no general surgery intervention, further care as per primary team and ortho for the hip fx.
--- NOTE | 2017-05-03 00:37 | Event Note ---
Event Note Event Note: S: Upgrading the patinet from Telemetry to the CRCU. Ms Kennedy is a 86-year-old woman with history of long-standing smoking, COPD, hypertension, hyperlipidemia who sustained a mechanical fall this morning resulting in a comminuted minimally displaced intertrochanteric fracture of the right femur. While in the emergency department she received, a total of 6mg IV Morphine. Appears that she became extremely agitated after this and had to be given 3 mg of Haldol to calm her down. Prior to being sent to telemetry service she became hemodynamically unstable and had to be transferred to the CRCU. The outline of events have been documented below. B. This is an 86 year old who presented to the ED after experiencing a fall. Imaging studies reveled a right closed displaced intertrochanteric hip fracture. The patient was signed out to the night team who took over her care. A/R: Shortly after 10 PM the night team was notified that the patient was hemodynamically unstable and did not respond to verbal stimuli. Housestaff at bedside, an examination showed that the patient was on a Ventimask minimally responsive to verbal stimuli and extensive rhonchi were noted on auscultation. An ABG (22.22) and chest x-ray were ordered. The patient had fluids running at maintenance dose which were stopped. The attending physician was made aware of the situation. The patient continued to become hypotensive, remained tachycardic a decision was made to insert a femoral line. In the interim peripheral pressors were started. The following were were on a list of differentials for hemodynamic instability: -Repiratory Depression due to opiate use -Adverse medication reacation -Acute PE -Myocardial Infarction -Retroperitoneal Bleed. -CVA At this time the patient daughter was at bedside. Appeared that the patient had also developed some abdominal distention which was not present at the time of admission. Once patient had been hemodynamically optimized she was sent for the following tests: Head CT, Chest CTA, Abdomen and Pelvis CT. An EKG also showed ST segment depressions in V3, V4, V5, V6. Patient remained in sinus tachycardia. The on-call professor of industrial technology Dr. Garcia was informed recommended that the patient should be ruled out with serial troponins and serial EKGs. Her repeat labs showed K of 6.0. Calcium gluconate, Insulin and Dextrose were administered. In the interim a call was also placed to the surgical service should the imaging confirm that the patient had a retroperitoneal bleed. Narcan was also administered Patient conitnued to be minimally responsive. The patient did however respond to the Levophed and this was able to be titrated to maintain a map of greater than 65. Her family was updated. A repeat ABG was ordered at 0003. Results of which were reported at 2.30 AM. 7.06/110/103/31. The patient was started on BiPAP and a repeat ABG has been ordered for 4.00 AM. At 5.05 am repeat gas was obtained: 7.14/83/101/28. Attending made aware. We will continue the BiPAP. Recommend the following: -Formal CRCU consultation in the AM. -Formal Cardiology consultation in AM. -Echocardiogram -Monitor serial labs and correct underlying causes. Dr. Gen Navarrete was called for acute worsening of blood pressure 80/40, hypoxia and 80s, difficult to arouse. It should be noted that patient's previous doses of morphine 2 mg, 4 mg were around 3:18 and 5:32. Patient became extremely agitated after morphine requiring haloperidol 3 mg IM. Patient was sleeping thereafter for few hours before anybody could go and check on her when they found hypotension, hypoxia. When I went to see patient at 10:30 PM, she was responding to deep pain only, pupils 2 mm, coarse respiratory sounds bilaterally, ? Pooling of secretions versus crackles, checked BP manually 64/44. Patient was on IV fluids which was stopped immediately, she was on nonrebreather saturating 85%, started on peripheral levophed. ABG was ordered but was never done by respiratory therapist. Given her acute hypoxia, hypotension and history of hip fracture fat embolism was considered and CTA was obtained which was unremarkable. Meanwhile patient's daughter also mentioned that her abdomen looked more distended than how she came in so CT abdomen was obtained with concern of intra-abdominal bleed, perforation or any other trauma, which was unremarkable as well. Meanwhile patient was started on Levophed for hypotension and femoral line was placed on left side by PA in ER. Patient tolerated the procedure well. At that point it was not clear whether she had pulmonary edema, pulmonary embolism versus aspiration. After obtaining CT it was more of pooling of secretions in upper airway. Eventually after 2 or so hours respiratory therapist obtained ABG which showed significant hypercapnic respiratory failure. Before that patient had received Narcan in ER with minimum response. Hypercapnic respiratory failure, with severe respiratory acidosis could be secondary to medications with underlying COPD but paradoxically patient appears to have delayed response to medications. Patient was started on BiPAP and Narcan drip, critical care consult Sunil Sorto MD was informed, Patient's hypoxia was much better after suctioning and continuation of BiPAP. Her ECG showed diffuse ST depression, secondary to tachycardia. Patient also had hyperkalemia with peaked T waves. Patient was given calcium gluconate, insulin, dextrose. Continue IV fluids along with Levophed. Family was informed at every step. Family insisted on DNR and considering DNI.
--- NOTE | 2017-05-03 00:44 | CT SCAN REPORT ---
EXAMINATION: CT ANGIOGRAM OF THE CHEST; CONTRAST-ENHANCED CT OF THE ABDOMEN AND PELVIS INDICATION: Hypoxemia, unresponsiveness, abdominal distention COMPARISON: Chest CT 07/05/2011 TECHNIQUE: 95 mL Optiray 320 IV contrast was utilized. Multidetector helical imaging was performed through the chest per PE protocol. Coronal, sagittal, and MIP images of the chest were created. In addition, multidetector helical imaging was performed through the abdomen and pelvis. Coronal and sagittal reformatted images were created at the technologist workstation. DLP: 440.99 mGy-cm FINDINGS: Chest: No definite central or segmental pulmonary embolus is seen, though assessment in some regions is limited due to respiratory motion artifact. There is intraluminal material in the right mainstem bronchus extending into the right lower lobe airways. The right middle lobar bronchus appears opacified centrally, though there is aeration of the segmental airways. There is also opacification of the right upper lobar bronchus centrally, while the more distal right upper lobe airways demonstrated better aeration. The central left bronchi are patent, though there is opacification of multiple segmental to subsegmental left lower lobe bronchi. There is upper lobe predominant emphysema. There is a redemonstrated complex appearing right upper lobe cyst measuring approximately 3.5 cm in diameter which appears mildly increased in size from 07/05/2011. There is increased central solid attenuation of this cystic lesion which could be due to acute inflammation or potentially developing malignancy. There is a focal nodular density in the right upper lobe measuring 1.0 x 0.6 cm on image 148/443 posteriorly, new from prior. No overt pulmonary edema. There are small bilateral pleural effusions with adjacent dependent atelectasis. No pneumothorax. There is a left thyroid nodule measuring approximately 1.7 x 1.4 cm in size. No discrete mediastinal adenopathy is seen. Cardiac size is within normal limits; no pericardial effusion. Coronary artery calcifications are present. There is extensive atherosclerotic plaque and calcification along the aorta. The aorta is suboptimally assessed due to the phase of postcontrast imaging. There is aneurysmal dilation of the descending aorta to approximately 4.7 cm which appears increased from prior. No axillary lymphadenopathy is present. Degenerative changes are noted in the spine. Abdomen/Pelvis: The liver is homogeneous in attenuation without intrahepatic biliary ductal dilatation. The gallbladder is unremarkable. The spleen and pancreas appear unremarkable. Bilateral adrenal nodules are suspected; comparison to 07/05/[address] also shows the presence of low-density adrenal nodules at that time, favoring adenomas. Bilateral nephrograms are symmetric. No hydronephrosis. There are several round low-density lesions in the left kidney measuring up to approximately 2.0 cm, not all of which have the density of simple cysts. An additional nonspecific small low-density lesion is noted off the lower right kidney. No obstructing renal or ureteral calculi are identified. The urinary bladder is collapsed with a Cruz catheter in place. There is moderate distention of the colon with gas and stool. No appreciable colonic wall thickening is seen. No specific evidence of bowel obstruction. Much of the small bowel is collapsed. No definite intra-abdominal free fluid. No free air is identified. There is extensive atherosclerotic disease along the aorta and iliac arteries. There is moderate calcification along the superior mesenteric artery. The right renal artery is not well delineated and may be stenotic. Left femoral central venous line is present with tip in the left common iliac vein. No retroperitoneal or pelvic lymphadenopathy is seen. There is a comminuted, impacted fracture intertrochanteric fracture of the proximal right femur. Moderate surrounding hematoma is noted. Degenerative changes are noted in the spine. IMPRESSION: 1. No pulmonary embolus identified, though assessment of some vessels is limited due to respiratory motion artifact. 2. Intraluminal material within airways of the bilateral lungs, right more extensive than left as described above. Appearance is suggestive of aspiration. 3. Small bilateral pleural effusions with adjacent atelectasis. 4. Upper lobe predominant emphysema. Redemonstrated complex appearing cystic structure in the right upper lobe appears mildly increased in size from 07/05/2011 with increased central components. An additional focal right upper lobe nodule measuring 1.0 x 0.6 cm is new from 2012. Follow-up chest CT in 3 months is advised for reevaluation. 5. Redemonstrated intertrochanteric fracture of the proximal right femur with moderate surrounding hematoma. 6. Moderate distention of the colon with gas and stool, without specific evidence for obstruction. No free air identified. 7. 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 8. Several bilateral renal lesions, left greater than right, not all of which are cystic by CT criteria. These would be best further assessed with pre and postcontrast MRI to evaluate for potential solid mass. 9. Left thyroid nodule, which would be better evaluated with ultrasound. Findings were discussed with Dr. Blevins on 05/03/2017 12:40 AM.
[2017-05-03 02:00] VITALS: BP 124/65
[2017-05-03 05:08] LABS: ABSOLUTE BASOPHIL COUNT 0 /CUMM (0.0-0.2); ABSOLUTE EOSINOPHIL COUNT 0 /CUMM (0.0-0.7); ABSOLUTE GRANULOCYTE CT 9.3 /CUMM (1.4-6.5); ABSOLUTE LYMPH COUNT 0.3 /CUMM (1.2-3.4); BASOPHIL % 0 % (0.0-2.0); EOSINOPHIL % 0 % (0-5); HEMATOCRIT 29.7 % (37-47); MEAN CORPUSCULAR HGB 33.3 PG (27.0-31.0); MEAN CORPUSCULAR HGB CONC 32.8 G/DL (33.0-37.0); MEAN CORPUSCULAR VOLUME 101.7 FL (81.0-99.0); MEAN PLATELET VOLUME 8.3 FL (7.4-10.4); RBC DISTRIBUTION WIDTH 14.3 % (11.5-14.5); RED BLOOD CELL CT 2.92 /CUMM (4.20-5.40); WHITE BLOOD CELL COUNT 10.6 /CUMM (4.8-10.8)
[2017-05-03 05:12] LABS: PT 11.1 SEC (9.4-12.5)
[2017-05-03 05:39] LABS: PLATELET COUNT 205 /CUMM (130-400)
--- NOTE | 2017-05-03 07:36 | Cons- [facility] ---
See Addendum General Information and HPI Consulting Request Date of Consult: 05/03/17 Requested By: Suzan Source of Information: old records Exam Limitations: unable to give history History of Present Illness: Ms Kennedy is a 86-year-old woman with history of long-standing smoking, COPD, hypertension, hyperlipidemia who sustained a mechanical fall this morning resulting in a comminuted minimally displaced intertrochanteric fracture of the right femur. While in the emergency department she received, a total of 6mg IV Morphine. Appears that she became extremely agitated after this and had to be given 3 mg of Haldol to calm her down. Prior to being sent to telemetry service she became hemodynamically unstable and had to be transferred to the CRCU for acute worsening of blood pressure 80/40, hypoxia 80s, difficulty to arouse.On examination she was responding to deep pain with 2 mm pupils worse respiratory sounds and manual recheck blood pressure of 60/44. She received Narcan in ED with minimal response. -Given her acute hypoxia, hypotension and history of hip fracture fat embolism was one of the differential. CTA was obtained which was unremarkable. -CT abdomen was also obtained with concern of intra-abdominal bleed, perforation or any other trauma, which was unremarkable as well. -CT head No acute intracranial pathology. Chronic small vessel ischemic disease and volume loss. -Her ECG showed diffuse ST depression, secondary to tachycardia -She underwent placement of a line and was started on Levophed. -ABGs showed significant hypercapnic respiratory failure, with severe respiratory acidosis could be secondary to medications with underlying COPD but paradoxically patient appears to have delayed response to medications, concerning for other possible pathologies. -Patient was started on BiPAP and Narcan drip, also received calcium gluconate, insulin, dextrose Currently patient is unarousable, on BiPAP, Narcan drip and Levophed to maintain map. Vitals Repeat ABGs show 7.14/83/101 Troponins 0.15, 0.15, Next at 1 PM, echocardiogram pending, Drs. Vann has been consulted and will see the patient. CBC H/H has dropped from 13/39 to 9.6/30, potassium has been trended down from 6 to 5. creatinine bumped up from 1.1 to 1.7. Phosphorous 6.3 Echocardiogram pending. Allergies/Medications Allergies: Coded Allergies: NO KNOWN ALLERGIES (02/27/14) Home Med List: Alendronate Sodium 70 MG TABLET 1 TAB PO QW BONE (Reported) in the morning, at least 30 minutes before the first food, beverage, or medication of the day Aspirin E.c. (Ecotrin) 325 MG TAB 1 TAB PO DAILY HEART HEALTH (Reported) Atenolol 50 MG TABLET 1 TAB PO DAILY HEART (Reported) Atenolol 50 MG TABLET 1 TAB PO DAILY HEART (Reported) Doxycycline Hyclate 100 MG TABLET 1 TAB PO BID wound Lisinopril/Hydrochlorothiazide (Lisinopril-Hctz 20-12.5 MG Tab) 20 MG-12.5 MG TABLET 1 TAB PO DAILY HTN (Reported) Lovastatin 40 MG TABLET 1 TAB PO DAILY CHOLESTEROL (Reported) with food Lovastatin 40 MG TABLET 1 TAB PO DAILY CHOLESTROL (Reported) with food Review of Systems Review of Systems Constitutional: Reports: see HPI. 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 Surgical History Surgical History: non-contributory Psychosocial History Services at Home: NONE Exam & Diagnostic Data Last 24 Hrs of Vital Signs/I&O Vital Signs Date Time Temp Pulse Resp B/P B/P Pulse O2 O2 Flow FiO2 Mean Ox Delivery Rate 05/03 1100 76 80/46 05/03 0951 76 99/53 05/03 0840 70 100 05/03 0627 74 99 05/03 0416 75 30 111/68 05/03 0400 91 BIPAP 100% 05/03 0256 87 98 05/03 0200 81 Non 100% ReBreather 05/03 0200 97.6 104 30 124/65 81 Non 100% ReBreather 05/03 0129 120/60 05/03 0128 97 Non 100% ReBreather 05/03 0116 100/50 05/03 0105 82/54 14 0047 102/62 05/03 0036 128/62 05/03 0031 138/62 05/03 0022 118/58 05/02 2355 82/48 05/02 2335 68/40 05/02 2329 93 70/40 83 Non 100% ReBreather 05/02 2317 62/42 02/13 2308 68/40 05/02 2303 70/42 05/02 2257 96 72/48 88 Non 100% ReBreather 05/02 2251 99.0 97 26 70/40 05/02 2248 97 26 70/40 84 Non 100% ReBreather 05/02 2208 83 Venti Mask 50% 05/02 2154 99.0 107 26 87/51 64 Nasal 4.0L Cannula 05/02 1915 96.4 05/02 1800 91 Nasal 3.0L Cannula 05/02 1730 96.4 72 17 148/78 96 Room Air 05/02 1453 95 Nasal 3.0L Cannula 05/02 1435 96.9 82 18 159/76 95 Nasal 3.0L Cannula Intake & Output 05/03 1600 05/03 0800 05/03 0000 Intake Total 793 Output Total 301 Balance 492 Intake, IV 793 Number 0 Bowel Movements Output, Urine 301 Patient 104 lb Weight Weight Bed scale Measurement Method Physical Exam General Appearance: unarousable Head: unarousable Eyes: Bilateral: other (pinpoint pupils). Neck: normal inspection Respiratory: chest non-tender Cardiovascular: S1, S2 Gastrointestinal: normal bowel sounds, soft Last 48 Hrs of Labs/James: Laboratory Tests 05/03/17 0955: Troponin I Cancelled 05/03/17 0955: Anion Gap 7, Estimated GFR 28 L, Glucose 141 H, Calcium 8.0 L, Phosphorus 6.3 H, Magnesium 1.8, Total Bilirubin 0.3, AST 17, ALT 30, Troponin I 0.15 *H, Albumin 2.0 L, CBC w Diff MAN DIFF ORDERED, RBC 3.04 L, MCV 98.4, MCH 31.5 H, MCHC 32.1 L, RDW 14.7 H, MPV 8.0, Segmented Neutrophils 49, Band Neutrophils 33 H, Lymphocytes 6 L, Monocytes 7, Metamyelocytes 4 H, Myelocytes 1 H, Platelet Estimate VERIFIED BY SMEAR, Normocytic RBCs VERIFIED, Normochromic RBCs VERIFIED 05/03/17 0600: Sodium Cancelled, Potassium Cancelled, Chloride Cancelled, Carbon Dioxide Cancelled, Anion Gap Cancelled, BUN Cancelled, Creatinine Cancelled, BUN/ Creatinine Ratio Cancelled 05/03/17 0500: Sodium Cancelled, Potassium Cancelled, Chloride Cancelled, Carbon Dioxide Cancelled, Anion Gap Cancelled, BUN Cancelled, Creatinine Cancelled, Glucose Cancelled, Calcium Cancelled, Phosphorus Cancelled, Magnesium Cancelled, Total Bilirubin Cancelled, AST Cancelled, ALT Cancelled, Albumin Cancelled 05/03/17 0455: pH 7.14 *L, pCO2 83 *H, pO2 101 H, HCO3 28, ABG O2 Sat (Measured) 96.0, P-50 ( Temp Corrected) Y, Carboxyhemoglobin 0.3 L, O2 Concentration % 100%, Temperature 97.6, Respiration Rate 30, O2 Delivery Method VISION-FFM, Vent Mode ST, Expiratory Pressure 6, Inspiratory Pressure 20, Phlebotomy Draw Site RIGHT BRACHIAL 05/03/17 033: Lactic Acid 1.1 05/03/17329: Anion Gap 5, Estimated GFR 30 L, Glucose 70, Calcium 8.0 L, Phosphorus 6.6 H, Magnesium 2.0, Total Bilirubin 0.2, Direct Bilirubin 0.2, AST 20, ALT 29, Alkaline Phosphatase 45, Troponin I 0.15 *H, Total Protein 4.4 L, Albumin 2.2 L, PT 11.1, INR 1.06, CBC w Diff NO MAN DIFF REQ, RBC 2.92 L, MCV 101.7 H, MCH 33.3 H, MCHC 32.8 L, RDW 14.3, MPV 8.3, Gran % 87.7 H, Lymphocytes % 2.6 L, Monocytes % 9.7 H, Eosinophils % 0, Basophils % 0, Absolute Granulocytes 9.3 H , Absolute Lymphocytes 0.3 L, Absolute Monocytes 1.0 H, Absolute Eosinophils 0 , Absolute Basophils 0 05/03/17 0300: Troponin I Cancelled 05/03/17 0230: pH 7.06 *L, pCO2 110 *H, pO2 103 H, HCO3 31 H, ABG O2 Sat (Measured) 95.0 L, P-50 (Temp Corrected) Y, Carboxyhemoglobin 0.9 L, O2 Concentration % 100%, Temperature 97.6, O2 Delivery Method NRB, Phlebotomy Draw Site RIGHT BRACHIAL 05/03/17133: Lactic Acid 1.3 05/03/17133: Anion Gap 2 L, Estimated GFR 39 L, BUN/Creatinine Ratio 20.8, WBC Cancelled, RBC Cancelled, Hgb Cancelled, Hct Cancelled, MCV Cancelled, MCH Cancelled, MCHC Cancelled, RDW Cancelled, Plt Count Cancelled, MPV Cancelled, Gran % Cancelled, Lymphocytes % Cancelled, Monocytes % Cancelled, Eosinophils % Cancelled, Basophils % Cancelled, Absolute Granulocytes Cancelled, Absolute Lymphocytes Cancelled, Absolute Monocytes Cancelled, Absolute Eosinophils Cancelled, Absolute Basophils Cancelled 05/02/177: Anion Gap 5, Estimated GFR 39 L, BUN/Creatinine Ratio 23.1, Phosphorus 5.0 H, Magnesium 1.9, Creatine Kinase 157 H, Troponin I 0.09, CBC w Diff NO MAN DIFF REQ, RBC 3.13 L, MCV 98.3, MCH 33.0 H, MCHC 33.5, RDW 13.9, MPV 8.7, Gran % 92.6 H, Lymphocytes % 1.7 L, Monocytes % 5.7, Eosinophils % 0, Basophils % 0, Absolute Granulocytes 15.2 H, Absolute Lymphocytes 0.3 L, Absolute Monocytes 0.9 H, Absolute Eosinophils 0, Absolute Basophils 0 05/02/17 1920: Urine Color Pending, Urine Clarity Pending, Urine pH Pending, Ur Specific [place] Pending, Urine Protein Pending, Urine Ketones Pending, Urine Nitrite Pending, Urine Bilirubin Pending, Urine Urobilinogen Pending, Ur Leukocyte Esterase Pending, Ur Microscopic Pending, Urine Hemoglobin Pending, Urine Glucose Pending 05/02/17 1448: Anion Gap 6, Estimated GFR 47 L, BUN/Creatinine Ratio 22.7, Glucose 164 H, Calcium 8.8, Total Bilirubin 0.3, AST 19, ALT 18, Alkaline Phosphatase 67, Troponin I 0.03, Total Protein 5.7 L, Albumin 3.1 L, Globulin 2.6, Albumin/ Globulin Ratio 1.2, PT 10.5, INR 1.00, APTT < 20 L, CBC w Diff NO MAN DIFF REQ, RBC 4.08 L, MCV 96.8, MCH 31.8 H, MCHC 32.9 L, RDW 14.0, MPV 7.9, Gran % 86.0 H, Lymphocytes % 6.5 L, Monocytes % 5.8, Eosinophils % 1.5, Basophils % 0.2, Absolute Granulocytes 8.9 H, Absolute Lymphocytes 0.7 L, Absolute Monocytes 0.6, Absolute Eosinophils 0.2, Absolute Basophils 0 Assessment/Plan Impression/Plan: Patient is on 86-year-old female with long-standing history of smoking, COPD not on home oxygen, hypertension, hyperlipidemia presenting this admission with chief complaint of fall and hip pain. -SEE ABOVE FOR pertinent data #Active Issues -Acute hypoxic respiratory failure 2/2 opiates vs aspiration -right intertrochanteric fracture of right femur -Dehydration -Mild hypernatremia, hyperkalemia -COPD -Acute agitation after morphine #Pt has been converted to comfort measures after discussion with family. Attending present. will de-escalate care including antibiotics, pressors and BiPAP. Consult Acknowledgment - Thank you for your consult request.
[2017-05-03 08:00] VITALS: BP 100/50
--- NOTE | 2017-05-03 10:21 | PN- Student ---
Subjective Subjective: HPI: Pt is a 86 yo WF with PMH sig for COPD (home O2), cigarette use, HTN, HLD, who came to the ED after sustaining a fall at home injuring her right hip. Pt denied any cardiac or neurological symptoms preceding the fall, suggesting it was purely mechanical. XRAY of the hip displayed a minimally displaced intertrochanteric fx of the right femur (which will require ORIF tomorrow, as stated by the Ortho team). In the ED she c/o of severe pain and was given a total of 6mg IV morphine, she subsequently became very agitated and received 3mg Haldol. Pt slept for a few hours but was then found to be hypotensive and hypoxic by ER staff. She was responding to deep pain only, pupils constricted, coarse resp sounds bilat, and manual bp of 64/44. IVFs were held, and she was started on peripheral Levophed. CTA was ordered to rule out fat embolus 2/2 hip fracture which was negative. Abdomen was also noted to be more distended by family members - CT abdomen obtained to rule out internal trauma which was also unremarkable. A femoral line was started in the ER successfully. Pt received Narcan in the ER for possible narcotic overdose which provided minimal improvement. ABG revealed sig hypercapnic respiratory failure with severe resp acidosis. Pt was started on BiPAP and Narcan drip. Her hypoxia improved with aggressive suctioning of airway. An EKG also revealed ST depression, tachycardia , peaked t waves 2/2 hyperkalemia - K+ 6. Given calcium gluoconate, insulin, dextrose. On-call traffic clerk also rec serial troponins and serial EKGs. IV fluids were continued with Levophed. At 5:05am this morning a repeat ABG revealed improvement in respiratory acidosis- now 7.14 from 7.06. Pt continued on BiPAP. Today, pt cannot be aroused. Nonconversant, lethargic. Not responding to verbal or physical stimuli. Afebrile, vital signs stable. She continues to be on BiPAP, IV Levophed 4mg q5h, IV Unasyn 3000mg q12h. ROS: unable to obtain. Meds: Current Medications Sig/Lily Start time Last Medication Dose Stop Time Status Admin Acetaminophen 1,000 MG Q8 05/03 0245 AC (Ofirmev) Ampicillin Sodium/ 3,000 MG Q12H 05/03 0100 AC 05/03 Sulbactam Sodium 0239 (Unasyn) Sodium Chloride 100 ML (Normal Saline 0.9%) Aspirin Buffered 325 MG DAILY 05/03 1000 AC (Ecotrin) Atenolol 50 MG DAILY 05/03 1000 AC (Tenormin) Atorvastatin Calcium 10 MG 1700 05/03 1700 AC (Lipitor) Norepinephrine 4 MG ONCE ONE 05/03 0130 CAN (Levophed Drip) 05/03 0131 Sodium Chloride 250 ML (Normal Saline 0.9%) Norepinephrine 4 MG Q24H 05/02 2245 AC 05/03 (Levophed Drip) 0416 Sodium Chloride 250 ML (Normal Saline 0.9%) Sodium Chloride 1,000 ML Q10H 05/02 2330 AC 05/03 (Normal Saline 0.9%) 05/04 0529 0951 Objective Objective: General: AVSS- however hypotensive last reading 80/46, laying in bed with BiPAP in NAD. Skin: significant hyperpigmentation of bilat LEs possibly venous stasis, multiple hyperpigmented skin lesions on multiple areas of the body consistent with seborrheic kerotosis, R upper extremity significantly erythemetous as compared to left. HEENT: NCAT, pupils constricted bilat, no cervical lymphadenopathy, no tracheal deviation. Pulm: difficult to assess lung subramanian with BiPAP in place and pt's position, no accessory muscle use. CV: RRR, S1/S2 noted, left DP pulse 2+ , right DP pulse 0. Abd: nondistended, nontender to palpation, no masses noted, soft. MSK: limited due to pt's cognitive status, however, no deformities or discolorations to right hip region, right hip nontender to palpation and nonedemetous, no edema of bilat LEs, left foot Babinski downgoing x 2, right foot babinski upgoing x 1. Vital Signs Date Time Temp Pulse Resp B/P B/P Pulse O2 O2 Flow FiO2 Mean Ox Delivery Rate 05/03 0951 76 99/53 05/03 0840 70 100 05/03 0627 74 99 05/03 0416 75 30 111/68 05/03 0400 91 BIPAP 100% 05/03 0256 87 98 05/03 0200 81 Non 100% ReBreather 05/03 0200 97.6 104 30 124/65 81 Non 100% ReBreather 05/03 0129 120/60 05/03 0128 97 Non 100% ReBreather 05/03 0116 100/50 05/03 0105 82/54 05/03 0047 102/62 05/03 0036 128/62 05/03 0031 138/62 05/03 0022 118/58 05/02 2355 82/48 05/02 2335 68/40 05/02 2329 93 70/40 83 Non 100% ReBreather 05/02 2317 62/42 05/02 2308 68/40 05/02 2303 70/42 05/02 2257 96 72/48 88 Non 100% ReBreather 05/02 2251 99.0 97 26 70/40 05/02 2248 97 26 70/40 84 Non 100% ReBreather 05/02 2208 83 Venti Mask 50% 05/02 2154 99.0 107 26 87/51 64 Nasal 4.0L Cannula 05/02 1915 96.4 05/02 1800 91 Nasal 3.0L Cannula 05/02 1730 96.4 72 17 148/78 96 Room Air 05/02 1453 95 Nasal 3.0L Cannula 05/02 1435 96.9 82 18 159/76 95 Nasal 3.0L Cannula Last 24 Hours I&Os 05/03 1600 05/03 0800 05/03 0000 Intake Total 793 Output Total 301 Balance 492 Intake, IV 793 Number 0 Bowel Movements Output, Urine 301 Patient 104 lb Weight Weight Bed scale Measurement Method Laboratory Tests Results Results: Laboratory Tests 05/03/17 0955: Troponin I Pending 05/03/17 0955: Sodium Pending, Potassium Pending, Chloride Pending, Carbon Dioxide Pending, Anion Gap Pending, BUN Pending, Creatinine Pending, Glucose Pending, Calcium Pending, Phosphorus Pending, Magnesium Pending, Total Bilirubin Pending, AST Pending, ALT Pending, Albumin Pending, CBC w Diff Pending, WBC Pending, RBC Pending, Hgb Pending, Hct Pending, MCV Pending, MCH Pending, MCHC Pending, RDW Pending, Plt Count Pending, MPV Pending 05/03/17 0455: pH 7.14 *L, pCO2 83 *H, pO2 101 H, HCO3 28, ABG O2 Sat (Measured) 96.0, P-50 ( Temp Corrected) Y, Carboxyhemoglobin 0.3 L, O2 Concentration % 100%, Temperature 97.6, Respiration Rate 30, O2 Delivery Method VISION-FFM, Vent Mode ST, Expiratory Pressure 6, Inspiratory Pressure 20, Phlebotomy Draw Site RIGHT BRACHIAL 05/03/17 0330: Lactic Acid 1.1 05/03/17 033: Anion Gap 5, Estimated GFR 30 L, Glucose 70, Calcium 8.0 L, Phosphorus 6.6 H, Magnesium 2.0, Total Bilirubin 0.2, Direct Bilirubin 0.2, AST 20, ALT 29, Alkaline Phosphatase 45, Troponin I 0.15 *H, Total Protein 4.4 L, Albumin 2.2 L, PT 11.1, INR 1.06, CBC w Diff NO MAN DIFF REQ, RBC 2.92 L, MCV 101.7 H, MCH 33.3 H, MCHC 32.8 L, RDW 14.3, MPV 8.3, Gran % 87.7 H, Lymphocytes % 2.6 L, Monocytes % 9.7 H, Eosinophils % 0, Basophils % 0, Absolute Granulocytes 9.3 H , Absolute Lymphocytes 0.3 L, Absolute Monocytes 1.0 H, Absolute Eosinophils 0 , Absolute Basophils 0 05/03/170: pH 7.06 *L, pCO2 110 *H, pO2 103 H, HCO3 31 H, ABG O2 Sat (Measured) 95.0 L, P-50 (Temp Corrected) Y, Carboxyhemoglobin 0.9 L, O2 Concentration % 100%, Temperature 97.6, O2 Delivery Method NRB, Phlebotomy Draw Site RIGHT BRACHIAL 05/03/17133: Lactic Acid 1.3 05/03/17133: Anion Gap 2 L, Estimated GFR 39 L, BUN/Creatinine Ratio 20.8, WBC Cancelled, RBC Cancelled, Hgb Cancelled, Hct Cancelled, MCV Cancelled, MCH Cancelled, MCHC Cancelled, RDW Cancelled, Plt Count Cancelled, MPV Cancelled, Gran % Cancelled, Lymphocytes % Cancelled, Monocytes % Cancelled, Eosinophils % Cancelled, Basophils % Cancelled, Absolute Granulocytes Cancelled, Absolute Lymphocytes Cancelled, Absolute Monocytes Cancelled, Absolute Eosinophils Cancelled, Absolute Basophils Cancelled 05/02/172116: Anion Gap 5, Estimated GFR 39 L, BUN/Creatinine Ratio 23.1, Phosphorus 5.0 H, Magnesium 1.9, Creatine Kinase 157 H, Troponin I 0.09, CBC w Diff NO MAN DIFF REQ, RBC 3.13 L, MCV 98.3, MCH 33.0 H, MCHC 33.5, RDW 13.9, MPV 8.7, Gran % 92.6 H, Lymphocytes % 1.7 L, Monocytes % 5.7, Eosinophils % 0, Basophils % 0, Absolute Granulocytes 15.2 H, Absolute Lymphocytes 0.3 L, Absolute Monocytes 0.9 H, Absolute Eosinophils 0, Absolute Basophils 0 05/02/17 1448: Anion Gap 6, Estimated GFR 47 L, BUN/Creatinine Ratio 22.7, Glucose 164 H, Calcium 8.8, Total Bilirubin 0.3, AST 19, ALT 18, Alkaline Phosphatase 67, Troponin I 0.03, Total Protein 5.7 L, Albumin 3.1 L, Globulin 2.6, Albumin/ Globulin Ratio 1.2, PT 10.5, INR 1.00, APTT < 20 L, CBC w Diff NO MAN DIFF REQ, RBC 4.08 L, MCV 96.8, MCH 31.8 H, MCHC 32.9 L, RDW 14.0, MPV 7.9, Gran % 86.0 H, Lymphocytes % 6.5 L, Monocytes % 5.8, Eosinophils % 1.5, Basophils % 0.2, Absolute Granulocytes 8.9 H, Absolute Lymphocytes 0.7 L, Absolute Monocytes 0.6, Absolute Eosinophils 0.2, Absolute Basophils 0 Microbiology 05/03 214 UPPER RESP: Surveillance Culture - RECD 05/03 214 GI: Surveillance Culture - RECD 05/03 0134 BLOOD: Blood Culture - RECD 05/03 11 LOWER RESP: Respiratory Culture - CAN Cancelled: NUMBER OF SQUAMOUS CELLS INDICATES POOR QUALITY SPECIMEN 05/03 11 LOWER RESP: Gram Stain - CAN Cancelled: NUMBER OF SQUAMOUS CELLS INDICATES POOR QUALITY SPECIMEN 05/02 2321 BLOOD: Blood Culture - COLB 05/02 1919 URINE ROUT: Urine Culture - RES Assessment/Plan Assessment: Pt is a 86 yo WF with a hx of HLD, HTN, COPD, cigarette use, who was seen at [facility] ED s/p fall with injury to right hip subsequently found to be a intertrochanteric fx via imaging. Pt was given 6mg morphine total for severe pain, followed by 3mg Haldol for agitation soon after. After several hours, she became hemodynamically unstable, minimally arousable to deep pain, with pinpoint pupils, and bilat crackles on auscultation. Minimal improvement in resp status with narcan, however, more of an improvement in HD status after suctioning the airway and admin Levophed. EKG obtained with ST depressions, peaked t waves. Hyperkalemia of 6 addressed with ca gluconate, dextrose, insulin, however, K+ on the rise today at 3am with a value of 5.6. Concern for a fat embolus 2/2 to hip fx, however, CT head unremarkable yesterday. ABG revealed severe respiratory acidosis which has improved today but remains acidotic. Most recent CXR reveals worsening right basilar consolidation suspicious for PNA, right pleural effusion , and central congestion. Lastly, creat increased to 1.7 today from 1.1 on arrival to ED - consistent with LORNA although unsure of baseline kidney function. Plan: Neuro: Unarousable, pinpoint pupils - consider MRI head to reassess for CVA. - may d/c narcan drip as prolonged changes in neurological status unlikely from morphine. - neuro consult Cardiovascular: ST depression, abnormal troponins, hypotensive - appreciate Cardiology consult - serial EKGs and serial troponins - echocardiogram - consider starting IVFs to address hypotension and possible pre-renal LORNA. - continue Levophed. Pulmonary: acute hypoxic respiratory failure, possible developing PNA? - continue BiPAP - repeat ABG in AM - if no significant improvement consider IV bicarb. - start ceftriaxone + azithromycin for possible PNA. GI/NUT: Renal/Electrolytes: Hyperkalemia - K 5.6 at 3am this morning. - repeat K levels - if remains elevated start Kayexalate. Musculoskeletal/Skin: cellulitis. Trauma: Right hip injury - ORIF tomorrow. - Ortho recs appreciated. DAREN Aggarwal-S2 05/03/17
--- NOTE | 2017-05-03 10:25 | RADIOLOGY REPORT ---
EXAMINATION: CR PORTABLE CHEST CLINICAL INFORMATION: Decreased breath sounds in right. Mild crackles noted on left. Question pneumonia. COMPARISON: Several prior chest x-rays, most recent of which is dated 05/02/2017. CTA of the chest dated 05/02/2017. TECHNIQUE: Portable AP semi-upright view of the chest was obtained. FINDINGS: Lung apices are not fully included on this exam. Multiple EKG leads overlie the chest. The cardiomediastinal silhouette is within normal limits in size. Calcification of the aortic arch is seen. Compared to the prior exam, there is increasing opacity in the right lung base, suspicious for pneumonia. A few associated air bronchograms are suspected. Associated small right-sided pleural effusion is also seen. On the recent CT scan, small left-sided pleural effusion is also seen, not definitely appreciated on this exam. Slight increased reticular opacities are noted in both upper lobes, left greater than right, possibly due to artifactual prominence related to technique differences versus subtle evolving interstitial reticulation or perhaps edema. There is central vascular congestion. 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 Diffuse osteopenia is noted. IMPRESSION: 1. Increase in right basilar consolidation, suspicious for pneumonia. 2. Small right-sided pleural effusion. The recently demonstrated left pleural effusion is not appreciated on this portable film. 3. Mild central vascular congestion is seen with question of increasing reticular opacities in the upper lobes. Follow-up is recommended to exclude evolving infiltrate or edema.
[2017-05-03 10:56] LABS: HEMATOCRIT 29.9 % (37-47); MEAN CORPUSCULAR HGB 31.5 PG (27.0-31.0); MEAN CORPUSCULAR HGB CONC 32.1 G/DL (33.0-37.0); MEAN CORPUSCULAR VOLUME 98.4 FL (81.0-99.0); PLATELET COUNT 185 /CUMM (130-400); RBC DISTRIBUTION WIDTH 14.7 % (11.5-14.5); RED BLOOD CELL CT 3.04 /CUMM (4.20-5.40); WHITE BLOOD CELL COUNT 6.9 /CUMM (4.8-10.8)
--- NOTE | 2017-05-03 12:30 | Cons- Cardiology ---
General Information and HPI Consulting Request Date of Consult: 05/03/17 Requested By: Janet Garrido MD Source of Information: old records Exam Limitations: unable to give history History of Present Illness: The patient is an 86-year-old female who is currently on CPAP and on able to give a history. She has a long-standing history of tobacco use, COPD, hypertension, and hyperlipidemia. On the day of admission she had a mechanical fall resulting in a comminuted minimally displaced intertrochanteric fracture of the right femur. While in the emergency room she received a total of of 6-10 mg of morphine and ultimately received Haldol for agitation. She subsequently, became hemodynamically unstable And less responsive with hypoxia noted and was admitted to the ICU for further monitoring and treatment. At one point, her manual blood pressure was as low as 60/40. She received Narcan in the emergency room with minimal response. At the moment, she remains on minimally responsive, blood pressure is borderline on pressor support, etc. A CTA of the chest was obtained which was unremarkable. CT of the abdomen was also unrevealing. Allergies/Medications Allergies: Coded Allergies: NO KNOWN ALLERGIES (02/27/14) Home Med List: Alendronate Sodium 70 MG TABLET 1 TAB PO QW BONE (Reported) in the morning, at least 30 minutes before the first food, beverage, or medication of the day Aspirin E.c. (Ecotrin) 325 MG TAB 1 TAB PO DAILY HEART HEALTH (Reported) Atenolol 50 MG TABLET 1 TAB PO DAILY HEART (Reported) Atenolol 50 MG TABLET 1 TAB PO DAILY HEART (Reported) Doxycycline Hyclate 100 MG TABLET 1 TAB PO BID wound Lisinopril/Hydrochlorothiazide (Lisinopril-Hctz 20-12.5 MG Tab) 20 MG-12.5 MG TABLET 1 TAB PO DAILY HTN (Reported) Lovastatin 40 MG TABLET 1 TAB PO DAILY CHOLESTEROL (Reported) with food Lovastatin 40 MG TABLET 1 TAB PO DAILY CHOLESTROL (Reported) with food Current Medications: Current Medications Sig/Lily Start time Last Medication Dose Route Stop Time Status Admin Acetaminophen 1,000 MG Q8 05/03 0245 AC IV Acetaminophen 0 .STK-MED ONE 05/02 1904 DC IV Acetaminophen 1,000 MG BID 05/02 1845 DC 05/02 IV 1915 Albuterol Sulfate 3 ML BID 05/03 1230 AC 05/03 INH 1228 Ampicillin Sodium/ 3,000 MG Q12H 05/03 0100 AC 05/03 Sulbactam Sodium IV 0239 Sodium Chloride 100 ML Aspirin Buffered 325 MG DAILY 05/03 1000 AC PO Atenolol 50 MG DAILY 05/03 1000 DC PO Atorvastatin Calcium 10 MG 1700 05/03 1700 AC PO Calcium Gluconate 1 GM ONCE ONE 05/03 0545 DC 05/03 Sodium Chloride 100 ML IV 05/03 0644 0702 Calcium Gluconate 0 .STK-MED ONE 05/03 0019 DC IV Calcium Gluconate 1 GM ONCE ONE 05/02 2330 DC 05/03 Sodium Chloride 100 ML IV 05/03 0029 0020 Dextrose 25 GM ONCE ONE 05/03 0545 DC 05/03 IV 05/03 0546 0702 Dextrose 25 GM ONCE ONE 05/02 2330 DC 05/03 IV 05/02 2331 0009 Dextrose/Sodium 1,000 ML Q10H 05/02 1845 DC 05/02 Chloride IV 1915 Haloperidol 0 .STK-MED ONE 05/02 1836 DC .ROUTE Haloperidol 3 MG ONCE ONE 05/02 1830 DC 05/02 IM 05/02 1831 1830 Insulin Human Regular 10 UNITS ONCE ONE 05/03 0545 DC 05/03 IV 05/03 0546 0705 Insulin Human Regular 10 UNITS ONCE ONE 05/02 2330 DC 05/03 IV 05/02 2331 0019 Ipratropium [place] 2.5 ML BID 05/03 1230 AC 05/03 INH 1228 Lorazepam 2 MG ONE ONE 05/02 1900 DC IV 05/02 1901 Morphine Sulfate 0 .STK-MED ONE 05/02 1731 DC .ROUTE Morphine Sulfate 4 MG ONCE ONE 05/02 1730 DC 05/02 IV 05/02 1731 1732 Morphine Sulfate 0 .STK-MED ONE 05/02 1514 DC .ROUTE Morphine Sulfate 2 MG ONCE ONE 05/02 1445 DC 05/02 IV 05/02 1446 1518 Naloxone HCl 0.4 MG ONCE ONE 05/03 0345 DC 05/03 IV 05/03 0346 0336 Naloxone HCl 4 MG ONCE ONE 05/03 0300 DC 05/03 Dextrose/Water 1,000 ML IV 05/03 0301 0405 Naloxone HCl 0.8 MG ONCE ONE 05/03 0200 DC 05/03 IV 05/03 0201 0203 Naloxone HCl 0 .STK-MED ONE 05/02 2356 DC .ROUTE Naloxone HCl 0 .STK-MED ONE 05/02 235 DC .ROUTE Naloxone HCl 0.8 MG ONCE ONE 05/02 2330 DC 05/02 IV 05/02 2331 2358 Norepinephrine 4 MG Q5H 05/03 1100 AC 05/03 Sodium Chloride 250 ML IV 1100 Norepinephrine 4 MG ONCE ONE 05/03 0130 CAN Sodium Chloride 250 ML IV 05/03 0131 Norepinephrine 0 .STK-MED ONE 05/02 2246 DC IV Norepinephrine 4 MG Q24H 05/02 2245 DC 05/03 Sodium Chloride 250 ML IV 05/03 1059 0416 Phenylephrine HCl 40 MG ONCE ONE 05/02 2345 DC Dextrose/Water 250 ML IV 05/02 2346 Sodium Chloride 1,000 ML BOLUS ONE 05/02 2345 DC 05/03 IV 05/03 0144 0009 Sodium Chloride 1,000 ML Q10H 05/02 2330 AC 05/03 IV 05/04 0529 0951 Past History Travel History Traveled to [place] past 21 day No Medical History Blood Transfusion Hx: No Neurological: NONE EENT: NONE Cardiovascular: hypertension, hyperlipidemia Respiratory: NONE Gastrointestinal: NONE Hepatic: NONE Renal: NONE Musculoskeletal: NONE Psychiatric: NONE Endocrine: NONE Blood Disorders: NONE Cancer(s): NONE SKIRT CLIPPER/Reproductive: NONE Surgical History Surgical History: non-contributory Psychosocial History Where Do You Live? Home Services at Home: NONE Smoking Status: Current Everyday Smoker Exam & Diagnostic Data Vital Signs and I&O Vital Signs Date Time Temp Pulse Resp B/P B/P Pulse O2 O2 Flow FiO2 Mean Ox Delivery Rate 05/03 1200 74 98 05/03 1100 76 80/46 05/03 0951 76 99/53 05/03 0840 70 100 05/03 0627 74 99 05/03 0416 75 30 111/68 05/03 0400 91 BIPAP 100% 05/03 0256 87 98 05/03 0200 81 Non 100% ReBreather 05/03 0200 97.6 104 30 124/65 81 Non 100% ReBreather 05/03 0129 120/60 05/03 0128 97 Non 100% ReBreather 05/03 0116 100/50 05/03 0105 82/54 05/03 0047 102/62 05/03 0036 128/62 05/03 0031 138/62 05/03 0022 118/58 05/02 2355 82/48 05/02 2335 68/40 05/02 2329 93 70/40 83 Non 100% ReBreather 05/02 2317 62/42 05/02 2308 68/40 05/02 2303 70/42 05/02 2257 96 72/48 88 Non 100% ReBreather 05/02 2251 99.0 97 26 70/40 05/02 2248 97 26 70/40 84 Non 100% ReBreather 05/02 2208 83 Venti Mask 50% 05/02 2154 99.0 107 26 87/51 64 Nasal 4.0L Cannula 05/02 1915 96.4 05/02 1800 91 Nasal 3.0L Cannula 05/02 1730 96.4 72 17 148/78 96 Room Air 05/02 1453 95 Nasal 3.0L Cannula 05/02 1435 96.9 82 18 159/76 95 Nasal 3.0L Cannula Intake & Output 05/03 1600 05/03 0800 05/03 0000 05/02 1600 05/02 0800 05/02 0000 Intake Total 793 Output Total 301 Balance 492 Intake, IV 793 Number 0 Bowel Movements Output, Urine 301 Patient 104 lb 96 lb 15.98 oz Weight Weight Bed scale Estimated Measurement Method Physical Exam: General Appearance: unarousable Head: Normal Eyes: Normal Neck: JVP normal, carotid shows normal bilaterally. No bruits heard. Respiratory: Scattered rhonchi bilaterally. Cardiovascular: Regular S1, S2. 1/6 systolic murmur left sternal border. Gastrointestinal: normal bowel sounds, soft Neurologic: Grossly nonfocal Labs/James Results: Laboratory Tests 05/03 05/03 05/03 0955 0955 0600 Chemistry Sodium (137 - 145 mmol/L) 143 Cancelled Potassium (3.5 - 5.1 mmol/L) 5.2 H Cancelled Chloride (98 - 107 mmol/L) 107 Cancelled Carbon Dioxide (22 - 30 mmol/L) 29 Cancelled Anion Gap (5 - 16) 7 Cancelled BUN (7 - 17 mg/dL) 30 H Cancelled Creatinine (0.5 - 1.0 mg/dL) 1.7 H Cancelled Estimated GFR (>60 ml/min) 28 L BUN/Creatinine Ratio Cancelled Glucose (65 - 99 mg/dL) 141 H Calcium (8.4 - 10.2 mg/dL) 8.0 L Phosphorus (2.5 - 4.5 mg/dL) 6.3 H Magnesium (1.6 - 2.3 mg/dL) 1.8 Total Bilirubin (0.2 - 1.3 mg/dL) 0.3 AST (14 - 36 U/L) 17 ALT (9 - 52 U/L) 30 Troponin I (< 0.11 ng/ml) Cancelled 0.15 *H Albumin (3.5 - 5.0 g/dL) 2.0 L Hematology CBC w Diff MAN DIFF ORDERED WBC (4.8 - 10.8 /CUMM) 6.9 RBC (4.20 - 5.40 /CUMM) 3.04 L Hgb (12.0 - 16.0 G/DL) 9.6 L Hct (37 - 47 %) 29.9 L MCV (81.0 - 99.0 FL) 98.4 MCH (27.0 - 31.0 PG) 31.5 H MCHC (33.0 - 37.0 G/DL) 32.1 L RDW (11.5 - 14.5 %) 14.7 H Plt Count (130 - 400 /CUMM) 185 MPV (7.4 - 10.4 FL) 8.0 Segmented Neutrophils (42.2 - 75.2 %) 49 Band Neutrophils (0.0 - 5.0 %) 33 H Lymphocytes (20.5 - 51.1 %) 6 L Monocytes (1.7 - 9.3 %) 7 Metamyelocytes (0.0 - 1.0 %) 4 H Myelocytes (0 - 0 %) 1 H Platelet Estimate (ADEQUATE) VERIFIED BY SMEAR Normocytic RBCs VERIFIED Normochromic RBCs VERIFIED 05/03 05/03 05/03 0500 0455 0330 Blood Gas pH (7.35 - 7.45 PH) 7.14 *L pCO2 (35 - 45 TORR) 83 *H pO2 (80 - 100 TORR) 101 H HCO3 (21 - 28 MEQ/L) 28 ABG O2 Sat (Measured) (>96.0 %) 96.0 P-50 (Temp Corrected) Y Carboxyhemoglobin (1.5 - 5.0 %) 0.3 L O2 Concentration % 100% Temperature (97.0 - 100.0 FARH) 97.6 Respiration Rate (BPM) 30 O2 Delivery Method VISION-FFM Vent Mode ST Expiratory Pressure (CM H2O P) 6 Inspiratory Pressure (CM H2O P) 20 Chemistry Sodium Cancelled Potassium Cancelled Chloride Cancelled Carbon Dioxide Cancelled Anion Gap Cancelled BUN Cancelled Creatinine Cancelled Glucose Cancelled Lactic Acid (0.7 - 2.1 mmol/L) 1.1 Calcium Cancelled Phosphorus Cancelled Magnesium Cancelled Total Bilirubin Cancelled AST Cancelled ALT Cancelled Albumin Cancelled Miscellaneous Phlebotomy Draw Site RIGHT BRACHIAL 05/03 05/03 0330 0300 Chemistry Sodium (137 - 145 mmol/L) 145 Potassium (3.5 - 5.1 mmol/L) 5.6 H Chloride (98 - 107 mmol/L) 107 Carbon Dioxide (22 - 30 mmol/L) 33 H Anion Gap (5 - 16) 5 BUN (7 - 17 mg/dL) 28 H Creatinine (0.5 - 1.0 mg/dL) 1.6 H Estimated GFR (>60 ml/min) 30 L Glucose (65 - 99 mg/dL) 70 Calcium (8.4 - 10.2 mg/dL) 8.0 L Phosphorus (2.5 - 4.5 mg/dL) 6.6 H Magnesium (1.6 - 2.3 mg/dL) 2.0 Total Bilirubin (0.2 - 1.3 mg/dL) 0.2 Direct Bilirubin (< 0.4 mg/dL) 0.2 AST (14 - 36 U/L) 20 ALT (9 - 52 U/L) 29 Alkaline Phosphatase (<127 U/L) 45 Troponin I (< 0.11 ng/ml) 0.15 *H Cancelled Total Protein (6.3 - 8.2 g/dL) 4.4 L Albumin (3.5 - 5.0 g/dL) 2.2 L Coagulation PT (9.4 - 12.5 SEC) 11.1 INR (0.90 - 1.19) 1.06 Hematology CBC w Diff NO MAN DIFF REQ WBC (4.8 - 10.8 /CUMM) 10.6 RBC (4.20 - 5.40 /CUMM) 2.92 L Hgb (12.0 - 16.0 G/DL) 9.7 L Hct (37 - 47 %) 29.7 L MCV (81.0 - 99.0 FL) 101.7 H MCH (27.0 - 31.0 PG) 33.3 H MCHC (33.0 - 37.0 G/DL) 32.8 L RDW (11.5 - 14.5 %) 14.3 Plt Count (130 - 400 /CUMM) 205 MPV (7.4 - 10.4 FL) 8.3 Gran % (42.2 - 75.2 %) 87.7 H Lymphocytes % (20.5 - 51.1 %) 2.6 L Monocytes % (1.7 - 9.3 %) 9.7 H Eosinophils % (0 - 5 %) 0 Basophils % (0.0 - 2.0 %) 0 Absolute Granulocytes (1.4 - 6.5 /CUMM) 9.3 H Absolute Lymphocytes (1.2 - 3.4 /CUMM) 0.3 L Absolute Monocytes (0.10 - 0.60 /CUMM) 1.0 H Absolute Eosinophils (0.0 - 0.7 /CUMM) 0 Absolute Basophils (0.0 - 0.2 /CUMM) 0 05/03 05/03 05/03 0230 0134 0134 Blood Gas pH (7.35 - 7.45 PH) 7.06 *L pCO2 (35 - 45 TORR) 110 *H pO2 (80 - 100 TORR) 103 H HCO3 (21 - 28 MEQ/L) 31 H ABG O2 Sat (Measured) (>96.0 %) 95.0 L P-50 (Temp Corrected) Y Carboxyhemoglobin (1.5 - 5.0 %) 0.9 L O2 Concentration % 100% Temperature (97.0 - 100.0 FARH) 97.6 O2 Delivery Method NRB Chemistry Sodium (137 - 145 mmol/L) 143 Potassium (3.5 - 5.1 mmol/L) 4.8 Chloride (98 - 107 mmol/L) 111 H Carbon Dioxide (22 - 30 mmol/L) 30 Anion Gap (5 - 16) 2 L BUN (7 - 17 mg/dL) 27 H Creatinine (0.5 - 1.0 mg/dL) 1.3 H Estimated GFR (>60 ml/min) 39 L BUN/Creatinine Ratio (7 - 25 %) 20.8 Lactic Acid (0.7 - 2.1 mmol/L) 1.3 Hematology WBC Cancelled RBC Cancelled Hgb Cancelled Hct Cancelled MCV Cancelled MCH Cancelled MCHC Cancelled RDW Cancelled Plt Count Cancelled MPV Cancelled Gran % Cancelled Lymphocytes % Cancelled Monocytes % Cancelled Eosinophils % Cancelled Basophils % Cancelled Absolute Granulocytes Cancelled Absolute Lymphocytes Cancelled Absolute Monocytes Cancelled Absolute Eosinophils Cancelled Absolute Basophils Cancelled Miscellaneous Phlebotomy Draw Site RIGHT BRACHIAL 05/02 Chemistry Sodium (137 - 145 mmol/L) 140 Potassium (3.5 - 5.1 mmol/L) 6.0 *H Chloride (98 - 107 mmol/L) 103 Carbon Dioxide (22 - 30 mmol/L) 31 H Anion Gap (5 - 16) 5 BUN (7 - 17 mg/dL) 30 H Creatinine (0.5 - 1.0 mg/dL) 1.3 H Estimated GFR (>60 ml/min) 39 L BUN/Creatinine Ratio (7 - 25 %) 23.1 Phosphorus (2.5 - 4.5 mg/dL) 5.0 H Magnesium (1.6 - 2.3 mg/dL) 1.9 Creatine Kinase (30 - 135 U/L) 157 H Troponin I (< 0.11 ng/ml) 0.09 Hematology CBC w Diff NO MAN DIFF REQ WBC (4.8 - 10.8 /CUMM) 16.4 H RBC (4.20 - 5.40 /CUMM) 3.13 L Hgb (12.0 - 16.0 G/DL) 10.3 L Hct (37 - 47 %) 30.8 L MCV (81.0 - 99.0 FL) 98.3 MCH (27.0 - 31.0 PG) 33.0 H MCHC (33.0 - 37.0 G/DL) 33.5 RDW (11.5 - 14.5 %) 13.9 Plt Count (130 - 400 /CUMM) 232 MPV (7.4 - 10.4 FL) 8.7 Gran % (42.2 - 75.2 %) 92.6 H Lymphocytes % (20.5 - 51.1 %) 1.7 L Monocytes % (1.7 - 9.3 %) 5.7 Eosinophils % (0 - 5 %) 0 Basophils % (0.0 - 2.0 %) 0 Absolute Granulocytes (1.4 - 6.5 /CUMM) 15.2 H Absolute Lymphocytes (1.2 - 3.4 /CUMM) 0.3 L Absolute Monocytes (0.10 - 0.60 /CUMM) 0.9 H Absolute Eosinophils (0.0 - 0.7 /CUMM) 0 Absolute Basophils (0.0 - 0.2 /CUMM) 0 Urines Urinalysis MOD H Urine Color (YEL,AMB,STR) YEL Urine Clarity (CLEAR) HAZY H Urine pH (5.0 - 8.0) 6.0 Ur Specific [place] (1.001 - 1.035) 1.025 Urine Protein (NEG,<30 MG/DL) 100 H Urine Ketones (NEG) NEG Urine Nitrite (NEG) NEG Urine Bilirubin (NEG) NEG Urine Urobilinogen (0.1 - 1.0 EU/dl) 0.2 Ur Leukocyte Esterase (NEG) NEG Ur Microscopic SEDIMENT EXAMINED Urine RBC (0 - 5 /HPF) 1-3 Urine WBC (0 - 2 /HPF) RARE Ur Epithelial Cells (NONE,FEW) FEW Urine Bacteria (NEG/NONE) FEW H Hyaline Casts (0/LPF) 1-3 H Urine Hemoglobin (NEG) NEG Urine Glucose (N MG/DL) NEG 05/02 1448 Chemistry Sodium (137 - 145 mmol/L) 147 H Potassium (3.5 - 5.1 mmol/L) 5.3 H Chloride (98 - 107 mmol/L) 104 Carbon Dioxide (22 - 30 mmol/L) 37 H Anion Gap (5 - 16) 6 BUN (7 - 17 mg/dL) 25 H Creatinine (0.5 - 1.0 mg/dL) 1.1 H Estimated GFR (>60 ml/min) 47 L BUN/Creatinine Ratio (7 - 25 %) 22.7 Glucose (65 - 99 mg/dL) 164 H Calcium (8.4 - 10.2 mg/dL) 8.8 Total Bilirubin (0.2 - 1.3 mg/dL) 0.3 AST (14 - 36 U/L) 19 ALT (9 - 52 U/L) 18 Alkaline Phosphatase (<127 U/L) 67 Troponin I (< 0.11 ng/ml) 0.03 Total Protein (6.3 - 8.2 g/dL) 5.7 L Albumin (3.5 - 5.0 g/dL) 3.1 L Globulin (1.9 - 4.2 gm/dL) 2.6 Albumin/Globulin Ratio (1.1 - 2.2 %) 1.2 Coagulation PT (9.4 - 12.5 SEC) 10.5 INR (0.90 - 1.19) 1.00 APTT (25 - 37 SEC) < 20 L Hematology CBC w Diff NO MAN DIFF REQ WBC (4.8 - 10.8 /CUMM) 10.3 RBC (4.20 - 5.40 /CUMM) 4.08 L Hgb (12.0 - 16.0 G/DL) 13.0 Hct (37 - 47 %) 39.5 MCV (81.0 - 99.0 FL) 96.8 MCH (27.0 - 31.0 PG) 31.8 H MCHC (33.0 - 37.0 G/DL) 32.9 L RDW (11.5 - 14.5 %) 14.0 Plt Count (130 - 400 /CUMM) 247 MPV (7.4 - 10.4 FL) 7.9 Gran % (42.2 - 75.2 %) 86.0 H Lymphocytes % (20.5 - 51.1 %) 6.5 L Monocytes % (1.7 - 9.3 %) 5.8 Eosinophils % (0 - 5 %) 1.5 Basophils % (0.0 - 2.0 %) 0.2 Absolute Granulocytes (1.4 - 6.5 /CUMM) 8.9 H Absolute Lymphocytes (1.2 - 3.4 /CUMM) 0.7 L Absolute Monocytes (0.10 - 0.60 /CUMM) 0.6 Absolute Eosinophils (0.0 - 0.7 /CUMM) 0.2 Absolute Basophils (0.0 - 0.2 /CUMM) 0 Assessment/Plan Assessment/Plan Assessment: 1. Acute hypoxemic respiratory failure 2. Probable mechanical fall with intertrochanteric hip fracture 3. Encephalopathy, likely related to medications, other etiologies to be excluded 4. Minimally elevated troponin, consistent with type II [place] 5. Anemia 6. Renal insufficiency Recommendations: -Trend serial troponins until decreasing -ECG later today and again in the morning -Echocardiogram pending -At the moment, surgical intervention should clearly be delayed pending resolution of the patient's mental status changes, etc. More complete assessment the patient's cardiac status remained remains pending follow-up troponins, echocardiogram evaluation, and further discussion with the patient when more alert. Consult Acknowledgment - Thank you for your consult request.
--- NOTE | 2017-05-03 14:12 | ULTRASOUND REPORT ---
EXAMINATION: COLOR-FLOW DUPLEX IMAGING OF THE BILATERAL LOWER EXTREMITY ARTERIAL SYSTEM. VELOCITY MEASUREMENTS THROUGHOUT THE FEMORAL ARTERIES. CLINICAL INFORMATION: 86-year-old female with cold bilateral lower extremities and absent pulses. COMPARISON: CT abdomen pelvis 05/02/2017 Technique: Grayscale, color and spectral Doppler imaging was obtained of the deep arterial system of both lower extremities. Examination was limited secondary to portable nature and patient limited mobility. Additionally, there is a catheter present within the left groin and overlying bandages limit evaluation in this region. RIGHT FEMORAL RUNOFF VELOCITIES: The right common femoral artery measures 79cm/s and is biphasic. The right profunda femoral artery measures 50 tocm/s and is monophasic. Right proximal superficial femoral artery measures 108 cm/s and is biphasic. Mid superficial femoral artery measures 77cm/s and is biphasic. Distal right superficial femoral artery measures 85cm/s and is biphasic. Right popliteal velocity measures 50cm/s and is biphasic. Posterior tibial velocity is 35cm/s and flow is monophasic. Anterior tibial velocity is 30cm/s and flow is monophasic. Dorsal pedis artery not clearly visualized. LEFT FEMORAL RUNOFF VELOCITIES: The left common femoral artery was not clearly visualized secondary to overlying bandage. The left profunda femoral artery measures 53cm/s and is biphasic. Left proximal superficial femoral artery measures 80 cm/s and is biphasic. Mid superficial femoral artery measures 81cm/s and is biphasic. Distal left superficial femoral artery measures 82cm/s and is biphasic. Left popliteal velocity measures 42cm/s and is monophasic. Posterior tibial velocity is 24cm/s and flow is biphasic. Anterior tibial velocity is 64cm/s and flow is biphasic. Dorsal pedis velocity not clearly visualized. IMPRESSION: Patent deep arterial system of both lower extremities. Primarily biphasic and monophasic waveforms throughout the bilateral lower extremities consistent with peripheral vascular disease. No area of focally increased velocity to suggest severe focal stenosis. The left common femoral artery was not clearly visualized secondary to overlying bandage from catheter.
--- NOTE | 2017-05-03 14:43 | ULTRASOUND REPORT ---
EXAMINATION: US TRIPLEX OF LOWER EXTREMITIES, BILATERAL CLINICAL INFORMATION: Recent right femur fracture with suspicion of DVT with lower extremity edema, swelling and skin changes. COMPARISON: None TECHNIQUE: Color-flow triplex imaging with spectral analysis and compression Doppler were performed on the lower extremities. The exam was limited as it was performed portably in a patient who is not conscious and with difficult mobility. FINDINGS: Respiratory variation, normal compression and augmented flow are noted throughout the lower extremities with the exception of the fact that accessing the popliteal veins was difficult and the left common femoral vein could not be visualized due to overlying bandages. The visualized common femoral vein, superficial femoral vein, profunda femoral vein, popliteal vein and visualized tibial venous segments show no evidence of deep venous thrombosis. A Anderson's cyst is noted in the left popliteal fossa measuring 2.5 x 0.5 x 0.6 cm. IMPRESSION: No thrombus is visualized. The study is quite limited as described above.
[2017-05-03 16:00] VITALS: BP 70/42
--- NOTE | 2017-05-03 17:11 | Event Note ---
Event Note Event Note: I was notified by the nursing staff that the patient is not breathing, also her heart rhythm apparently went flat on the satellite project site monitor. Family present at bedside. Family preferred to leave the room while we complete the physical exam. Saw and examined the patient. Patient looks pale. Pulse not palpable. Pupils are dilated and not reactive to light. There is no response to tactile stimuli. There is not a sign of spontaneous respiration. Heart sound absent. The patient was pronounced at 05:02 PM, 05/03/17. Spoke with the family regarding their wishes for possible autopsy to be able to determine exact cause of . Family does not wish to pursue autopsy.
--- NOTE | 2017-05-04 19:39 | ECHOCARDIOGRAM REPORT ---
ALFONSO SHEPHERD Age: 86 : 1930 Gender: F Exam Date: 05/03/2017 08:48 Exam Location: [facility] Ht (in): 60 Wt (lb): 97 BSA: 1.36 BP: 111 / 68 Ordering Physician: Waleska Esposito MD Referring Physician: Waleska Esposito MD Technologist: Praomd Schmitt [facility] Room Number: 112 Indications: RESPIRATORY FAILURE Rhythm: Sinus Technical Quality: Fair FINDINGS Left Ventricle Normal size left ventricle. No obvious regional wall motion abnormalities. Normal left ventricular ejection fraction estimated at 65-70%. Right Ventricle Right ventricle not well visualized, grossly normal. Right Atrium Normal right atrial size. Left Atrium Left atrial dilatation. Mitral Valve Mild thickening/calcification of the anterior mitral valve leaflet. Severe mitral annular calcification. Trace mitral regurgitation. Aortic Valve Trileaflet aortic valve. Diffuse thickening of the aortic valve cusps with reduced excursion. Mild aortic stenosis. Tricuspid Valve Tricuspid valve not well visualized, grossly normal. Trace tricuspid regurgitation. Pulmonic Valve Pulmonic valve not well visualized, grossly normal. Mild pulmonic regurgitation. Pericardium No pericardial effusion. Great Vessels Aortic root and proximal ascending aorta not well visualized, grossly normal. CONCLUSIONS 1. This was a technically difficult study 2. Fibrocalcific changes are present in the aortic valve with evidence of mild valvular stenosis. The estimated valve area is 1.6 cm. 3. Thickening and calcification of the mitral leaflets is present with fibrosis of the chordal structures in moderate to severe annular calcification with minimal mitral insufficiency and left atrial enlargement. 4. No significant pericardial fluid was present. 5. The left ventricular chamber size and systolic function are normal with no resting wall motion abnormality. 6. Minimal tricuspid insufficiency is present with mild pulmonic insufficiency. The right ventricular systolic pressure was not well assessed. 7. Left ventricular diastolic dysfunction is present. Khang Wright M.D. (Electronically Signed) Final Date: 04 May 2017 19:38 MEASUREMENTS (Male / Female) Normal Values 2D ECHO LV Diastolic Diameter PLAX 3.9 cm 4.2 - 5.9 / 3.9 - 5.3 cm LV Systolic Diameter PLAX 2.1 cm 2.1 - 4.0 cm LV Fractional Shortening PLAX 46.2 % 25 - 46 % LV Ejection Fraction 2D Teich 78.1 % IVS Diastolic Thickness 0.8 cm LVPW Diastolic Thickness 0.9 cm LV Relative Wall Thickness 0.4 RV Internal Dim ED PLAX 2.2 cm 1.9 - 3.8 cm LVOT Diameter 1.7 cm Aortic Root Diameter 2.7 cm LA Systolic Diameter LX 2.7 cm 3.0 - 4.0 / 2.7 - 3.8 cm Ascending Aorta Diameter 2.9 cm DOPPLER AV Peak Velocity 196.0 cm/s AV Peak Gradient 15.4 mmHg AV Mean Velocity 144.0 cm/s AV Mean Gradient 9.0 mmHg AV Velocity Time Integral 44.6 cm LVOT Peak Velocity 94.0 cm/s LVOT Peak Gradient 3.5 mmHg LVOT Mean Velocity 64.2 cm/s LVOT Mean Gradient 2.0 mmHg LVOT Velocity Time Integral 24.5 cm LVOT Stroke Volume 55.6 cm AV Area Cont Eq vti 1.2 cm AV Area Cont Eq pk 1.1 cm MV Peak Velocity 186.0 cm/s MV Peak Gradient 13.8 mmHg MV Mean Velocity 95.9 cm/s MV Mean Gradient 4.0 mmHg Mitral E Point Velocity 104.0 cm/s Mitral A Point Velocity 154.0 cm/s Mitral E to A Ratio 0.7 MV PHT Velocity 124.0 cm/s MV Deceleration [place] 306.0 cm/s MV Pressure Half Time 121.6 ms MV Area PHT 1.8 cm MV Deceleration Time 496.0 ms PV Peak Velocity 89.6 cm/s PV Peak Gradient 3.2 mmHg PV Mean Velocity 67.7 cm/s PV Mean Gradient 2.0 mmHg PV Velocity Time Integral 22.5 cm LV E' Lateral Velocity 3.1 cm/s Mitral E to LV E' Lateral Ratio 33.3 LV E' Septal Velocity 3.1 cm/s Mitral E to LV E' Septal Ratio 33.3
[2017-05-05 02:02] LABS: GRANULOCYTE % 87.7 % (42.2-75.2)
== END 2017-05-03 17:01 | disposition expired | DRG 535 ==
LOC: ERH 14:22 → CRI 16:20 → ERHI 16:20 → EDBEDREQ 05-03 00:34 → ERHI 05-03 00:38 → ENRESERV 05-03 00:50 → CRI 05-03 02:02
PROVIDERS: Internal Medicine Hematology & Oncology; Physician Assistant Medical; Student in an Organized Health Care Education/Training Program
DX: S72.141A Displaced intertrochanteric fracture of right femur, initial encounter for closed fracture (principal); J96.01 Acute respiratory failure with hypoxia; I21.A1 Myocardial infarction type 2; J96.92 Respiratory failure, unspecified with hypercapnia; G92 Toxic encephalopathy; E87.2 Acidosis; E87.0 Hyperosmolality and hypernatremia; W18.30XA Fall on same level, unspecified, initial encounter; Y93.89 Activity, other specified; Y92.010 Kitchen of single-family (private) house as the place of occurrence of the external cause; F17.210 Nicotine dependence, cigarettes, uncomplicated; S50.319A Abrasion of unspecified elbow, initial encounter; I87.2 Venous insufficiency (chronic) (peripheral); T40.2X5A Adverse effect of other opioids, initial encounter; E87.5 Hyperkalemia
CPT/HCPCS: ERO; 36415; 71045; 73090-LT; 73502-RT; 74177; 81001; 82436; 87040; 87070; 87086; 93005; 93010; 93306; 93925; 93970; J0131; J0610; J1630; J1815; J2310; J7040; J7042; J7060